=== PATIENT | female | born 1985 | race Caucasian/White ===

== ENCOUNTER → 2017-12-18 16:02 | Outpatient (REF) | payer BC, SELFPAY ==
--- NOTE | 2017-12-18 15:20 | PAPFT_PTH ---
PATIENT: Mag Lynn LOC: [facility] U#:[id number] AGE/SX: 39/F ROOM: RE12/18/[address]: Devi Harvey NP : 1985 BED: DIS: SPEC #: [id number] RECD: 12/18/17 17:49 STATUS: EVANS MORTENSEN #: [id number] ASHER: 12/18/17 15:[address]: Devi Harvey NP DEPT: [facility] Cytology RECD BY: Rosita Dominique ENTERED: 12/18/17 17:49 SP TYPE: PAPFT OTHR DR: Maxine Cabrera Tissues: 1 - CX/ENDOCX FOR PAP SMEARS Procedures: PAP THIN PREP/UVM Screening HPV DNA PROBE Comments: [id number]
== END ==
LOC: LBN 16:02
PROVIDERS: PCP Nurse Practitioner Family; Visit Provider Nurse Practitioner Women's Health
DX: Z12.4 Encounter for screening for malignant neoplasm of cervix (principal); Z11.51 Encounter for screening for human papillomavirus (HPV)
CPT/HCPCS: 88142; 87624

== ENCOUNTER 2018-02-21 13:18 | Outpatient (REF) | payer BC, SELFPAY ==
[2018-02-21 20:02] LABS: ESR 11 MM/HR (0-20)
[2018-02-24 11:19] LABS: HSV Type 1 Ab, IgG Positive; HSV Type 2 Ab, IgG Negative
[2018-02-24 13:55] LABS: ANA Interpretation Negative (NEGAT)
== END 2018-02-21 13:38 ==
LOC: NCHCN 13:18
PROVIDERS: PCP Nurse Practitioner Family; Visit Provider Nurse Practitioner Family
DX: M25.50 Pain in unspecified joint (principal); L30.9 Dermatitis, unspecified; K12.0 Recurrent oral aphthae; Z11.59 Encounter for screening for other viral diseases
CPT/HCPCS: 85652; 86038; 86695; 86696

== ENCOUNTER 2019-06-15 18:17 | Emergency (ER) | payer OTHER, SELFPAY ==
[2019-06-15 18:25] VITALS: BP 127/84; PULSE 84; RESP 18; TEMP 36.9; O2SAT 100
--- NOTE | 2019-06-15 18:35 | ED.GENADUL_ITS ---
Discharge Plan Disposition Patient Disposition: HOME Condition: Stable Discharge Details Chief Complaint: Allergic Clinical Impression: Rash, History of eczema Primary Care Provider: Maxine Cabrera ED Provider: Brenna Crocker Home Meds and New Rx's Prescriptions: New prednisone 20 mg tablet See Rx Instructions .ROUTE .COMPLEX Qty: 12 RF: 0 Continued diphenhydramine HCl [Benadryl] 25 mg Capsule 25 mg PO Q6H PRNRF: 0 Discharge Instructions Instructions: Acute Rash (ED) Additional Instructions: Take Benadryl as needed and directed for itching. Stop taking the Claritin as this is the one new medication he recently started. You can also try other nonsedating antihistamine such as Zyrtec or Renata as needed and directed for itching. Take the steroids until finished. You can also try [id number] topical steroid cream for your chronic eczema rash to your legs. Follow-up with your primary care doctor in 1 week. Return to the emergency department with any worsening or new concerning symptoms such as difficulty swallowing, difficulty breathing or any other concerns. Discharge Data Discharge Date/Time-TO BE ENTERED AT DEPARTURE: 06/15/19 19:50 Discharge Physician: Brenna Crocker Medical Decision Making 33-year-old female presents with pruritic rash to both arms since yesterday. Admits to a similar rash 1 month ago which she attributed to eating bad food while on vacation in [place]. She states the rash resolved after a few days at that time. She does state that she ate a pizza with gluten 2 days ago prior to onset of the rash so she is unsure if this is the cause. She reports she did test negative for celiac disease. She denies any other new exposures including new meds, lotions, detergents, soaps. She does state that sometime this afternoon she felt short of breath with a funny feeling in her throat for a short period. She states these symptoms are now resolved. She took 1 tab of Benadryl prior to arrival. She denies any vomiting or abdominal pain. There is a fine erythematous papular rash noted to the bilateral upper extremities. Some tiny papules appear excoriated consistent with scratching. They do not appear consistent with urticaria. This does not appear consistent with an obvious viral rash. Appears most likely consistent with a contact dermatitis. Discussed with patient that generally rashes which cause itching and inflammation, are best treated with possibly eliminating the source, in addition to Benadryl and steroids. As she had a brief episode of shortness of breath and sensation in throat, will treat with oral steroids. Patient demonstrates no signs of respiratory distress and has normal oxygen saturation. A dose of oral steroids and additional dose of Benadryl given. She had a negative test. She was given a prescription for prednisone to go. Advised to follow up with the primary care doctor for re-evaluation. Usual and customary return precautions given prior to discharge. Medical Records Medical records reviewed: Yes I reviewed the patient's medical records. HPI General Mode of arrival: ambulatory . Date/Time Provider Initiated Documentation: 06/15/19 18:32 . Limitations to Documentation: no limitations . Information obtained by: patient . History of Present Illness 33 year old F presents to the emergency department with the chief complaint of Itchy rash to both arms, described as moderate, and is localized to the abdomen, left, right and upper extremity. Patient reports no radiation. Patient started experiencing this day(s) (2) and it has been constant. No relieving factors improve symptom(s), No exacerbating factors reported . Patient notes shortness of breath and other (Throat felt funny). Patient did receive the following treatments prior to arrival, other (1 tab 25 mg Benadryl) Related Data Home Medications Medication Instructions Recorded Confirmed diphenhydramine HCl [Benadryl] 25 mg PO Q6H PRN 06/15/19 06/15/19 prednisone See Rx Instructions .ROUTE 06/15/19 .COMPLEX #12 tab Previous Rx's Medication Instructions Recorded prednisone See Rx Instructions .ROUTE 06/15/19 .COMPLEX #12 tab Allergies Allergy/AdvReac Type Severity Reaction Status Date / Time Sulfa (Sulfonamide Allergy Severe Anaphylaxsi Unverified 06/15/19 18:30 Antibiotics) s amoxicillin [Amoxicillin] Allergy Intermediate Hives Unverified 06/15/19 18:30 codeine Allergy Intermediate Hives Unverified 06/15/19 18:30 erythromycin base Allergy Intermediate Hives Unverified 06/15/19 18:30 [Erythromycin Base] Penicillins Allergy Intermediate Hives Unverified 06/15/19 18:30 clindamycin AdvReac chest Unverified 06/15/19 18:30 pain/tingling arms General Stated Complaint: Allergic NINA: 4 Review of Systems All systems reviewed & are unremarkable except as noted in HPI and below Constitutional Constitutional: Reports as per HPI, Denies chills and Denies fever(s) Eyes Eyes: Denies blurry vision ENT Ears, Nose, Mouth, and Throat: Denies dizziness, Denies sore throat and Denies throat swelling Cardiovascular Cardiovascular: Denies chest pain and Denies dyspnea Respiratory Respiratory: Denies cough and Denies dyspnea Gastrointestinal Gastrointestinal: Denies abdominal pain, Denies diarrhea and Denies vomiting Genitourinary Genitourinary: Denies hematuria and Denies dysuria Musculoskeletal Musculoskeletal: Denies back pain and Denies numbness Integumentary/Breasts Skin/Breast: Denies lesions and Reports rash Neurologic Neurologic: Denies dizziness, Denies focal weakness and Denies numbness Allergic/Immunologic Allergic/Immunologic: Denies throat swelling [facility] Medical History No significant past medical history (Acute) Surgical History Knee surgery 1999 Tonsillectomy (~2004) W/O C/O Social History Smoking/Tobacco Use Status: Former Tobacco Use Drug use: Never Do you feel safe in your relationship?: Yes Exam Const General: cooperative, healthy appearing and no acute distress HENMT Head: normal to inspection Ears: hearing grossly normal bilaterally and external ears normal Face and sinus: normal facial exam Mouth: oral mucosae normal, lip normal, tongue normal, oropharynx normal, moist mucous membranes, no drooling and no trismus Throat: posterior oropharynx normal, uvula midline and no peritonsillar masses Eyes General: appearance normal, both eyes and all related structures Pupils: PERRL EOM: EOM intact bilaterally Neck Neck: normal visual inspection and No submandibular swelling Lymphatic: no lymphadenopathy noted Chest Chest: normal inspection of the chest and no tenderness Resp Effort & Inspection: normal respiratory effort and able to speak in complete sentences Auscultation: clear to auscultation bilaterally Cardio Rate: regular rate Rhythm: regular rhythm GI Inspection: normal to inspection Palpation: soft, not firm, not rigid and nontender Auscultation: normal bowel sounds Skin Other: Fine erythematous papules noted scattered and also in clusters on bilateral dorsal upper extremities. Linear excoriations consistent with scratching. No obvious rash noted to abdomen. Neuro General: alert, awake and oriented x3 Cognition: normal cognition Speech: speech normal Motor: muscle tone normal throughout Sensory Exam: no sensory deficits noted Extrem General: normal to inspection, full ROM, normal capillary refill, no calf tenderness bilaterally and no edema Psych Appearance: grossly normal Mental Status: mental status grossly normal Speech and Movement: speech and movement normal Affect: normal affect Course Vital Signs Vital signs: Vital Signs Temperature 98.4 F 06/15/19 18:25 Pulse 84 06/15/19 18:25 Respiratory Rate 18 06/15/19 18:25 Blood Pressure 127/84 06/15/19 18:25 Pulse Oximetry 100 06/15/19 18:25 Temperature 98.4 F 06/15/19 18:25 Temperature Source Skin 06/15/19 18:25 Pulse 84 06/15/19 18:25 Respiratory Rate 18 06/15/19 18:25 Blood Pressure 127/84 06/15/19 18:25 Blood Pressure Position Sitting 06/15/19 18:25 Pulse Oximetry 100 06/15/19 18:25 Oxygen Delivery Method Room Air 06/15/19 18:25 Oxygen Flow Rate 0 06/15/19 18:25 Pain Level 0 06/15/19 18:25
[2019-06-15 18:46] VITALS: BP 118/85; PULSE 88; O2SAT 99
[2019-06-15 18:47] VITALS: O2SAT 99
[2019-06-15] MEDS: diphenhydrAMINE 25 MG CAP PO (19:28)
[2019-06-15] MEDS: predniSONE 20 MG TAB 60 MG PO (19:36)
== END 2019-06-15 19:50 | disposition home or self-care (01) ==
LOC: ER 19:57
PROVIDERS: Emergency Provider Physician Assistant; PCP Nurse Practitioner Family
DX: R21 Rash and other nonspecific skin eruption (principal); L25.9 Unspecified contact dermatitis, unspecified cause; R06.02 Shortness of breath
CPT/HCPCS: 81025; 99283; J7512

== ENCOUNTER 2019-12-24 21:40 | Outpatient (REF) | payer OTHER, SELFPAY ==
[2019-12-28 13:29] LABS: SARS-CoV-2 RNA Undetected (Undetected); SARS-CoV-2 Specimen Source Nasopharynx
== END 2019-12-24 22:00 ==
LOC: NCHCN 21:40
PROVIDERS: PCP Nurse Practitioner Family; Visit Provider Nurse Practitioner Family
DX: R05 Cough (principal)
CPT/HCPCS: U0003

== ENCOUNTER 2020-01-28 15:44 | Outpatient (REF) | payer OTHER, SELFPAY ==
[2020-01-30 19:19] LABS: Patient Race White; SARS-CoV-2 RNA Undetected (Undetected); SARS-CoV-2 Specimen Source Nasopharynx
== END 2020-01-28 16:04 ==
LOC: NCHCN 15:44
PROVIDERS: PCP Nurse Practitioner Family; Visit Provider Nurse Practitioner Family
DX: R05 Cough (principal); R06.02 Shortness of breath; Z20.828 Contact with and (suspected) exposure to other viral communicable diseases
CPT/HCPCS: U0003

== ENCOUNTER 2020-03-25 19:52 | Emergency (ER) | payer OTHER, SELFPAY ==
[2020-03-25] VITALS (7 sets, daily range): BP systolic 103–128; BP diastolic 61–88; PULSE 65–88; RESP 13–20; TEMP 36.8; O2SAT 95–100
--- NOTE | 2020-03-25 19:45 | RT.EKG_ITS ---
APPROVED REPORT Exam: Resting ECG Patient Location: E HR:77 bpm ECG Measurements Heart Rate 77 AXIS KS 148 P 52 QRSd 95 QRS 66 QT 404 T 26 QTc 457 Conclusion Sinus rhythm...normal P axis, V-rate 60- 99 Normal Electrocardiogram
[2020-03-25 20:35] LABS: Abs Immature Grans 0.03 10^3/uL (0.0-0.06); Absolute Basophil Count 0.05 10^3/uL (0.0-0.2); Absolute Eosinophil Count 0.14 10^3/uL (0.0-0.7); Absolute Lymphocyte Count 1.72 10^3/uL (1.2-3.4); Absolute Monocyte Count 0.61 10^3/uL (0.1-0.8); Absolute Neutrophil Count 5.23 10^3/uL (1.2-6.7); Basophils % 0.6; Eosinophils % 1.8; HGB 15.1 g/dL (11.2-15.7); Immature Grans % 0.4; Lymphocytes % 22.1; MCH 32.2 pg (27.0-33.0); MCHC 35.1 % (32.0-36.0); MCV 91.7 fL (80-95); Monocytes % 7.8; Neutrophils % 67.3; Nucleated RBC 0 %; Platelet Count 305 10^3/uL (130-400); RBC 4.69 10^6/uL (3.93-5.22); RDW 11.5 % (11.7-14.6); RDW-SD 38.9 fL; WBC 7.78 10^3/uL (4.4-10.8)
--- NOTE | 2020-03-25 20:35 | ED.GENADUL_ITS ---
Discharge Plan Disposition Patient Disposition: HOME Condition: Improving Discharge Details Clinical Impression: Chest pain due to GERD Primary Care Provider: Maxine Cabrera ED Provider: Ashley Hahn Home Meds and New Rx's Prescriptions: New pantoprazole [address] for susp in packet 40 mg PO DAILY Qty: 30 RF: 0 No Action sertraline 50 mg tablet 50 mg PO DAILY RF: 0 Discharge Instructions Instructions: GERD (Gastroesophageal Reflux Disease) (ED) Additional Instructions: take protonix daily for 3 weeks. avoid spicy and acidic foods avoid eating within 3 hours of bedtime. Referrals: Maxine Cabrera [Primary Care Provider] - Medical Decision Making presents with symptoms most consistent with GERD. EKG with no acute st segment changes routine chest pain labs reviewed and unremarkable. cxr with no findings pain improved after gi cocktail and IV protonix. Medical Records Medical records reviewed: Yes I reviewed the patient's medical records. Medical records narrative: chest xray no acute findings Lab Data Lab results reviewed: Yes I reviewed the patient's lab results. Lab results narrative: Laboratory Tests Range/Units 03/25/20 03/25/20 03/25/20 20:10 20:10 20:10 WBC (4.4-10.8) 10^3/uL 7.78 RBC (3.93-5.22) 10^6/uL 4.69 Hgb (11.2-15.7) g/dL 15.1 Hct (36.0-46.0) % 43.0 MCV (80-95) fL 91.7 MCH (27.0-33.0) pg 32.2 MCHC (32.0-36.0) % 35.1 RDW (11.7-14.6) % 11.5 L Plt Count (130-400) 10^3/uL 305 MPV (8.0-11.0) fL 9.0 Immature Gran % 0.4 Neutrophils % 67.3 Lymphocytes % 22.1 Monocytes % 7.8 Eosinophils % 1.8 Basophils % 0.6 Nucleated RBC % % 0 Absolute Neutrophils (1.2-6.7) 10^3/uL 5.23 Absolute Lymphocytes (1.2-3.4) 10^3/uL 1.72 Absolute Monocytes (0.1-0.8) 10^3/uL 0.61 Absolute Eosinophils (0.0-0.7) 10^3/uL 0.14 Absolute Basophils (0.0-0.2) 10^3/uL 0.05 D-Dimer (<500) ng/mlFEU 138 Sodium (136-145) mmol/L 139 Potassium (3.5-5.1) mmol/L 3.6 Chloride (98-107) mmol/L 102 Carbon Dioxide (21.0-32.0) mmol/L 31.6 Anion Gap (3-11) mmol/L 5.4 BUN (7-18) mg/dL 15 Creatinine (0.55-1.02) mg/dL 0.83 Estimated GFR/1.73 m2 (mL/min/1.73m2) >= 60.00 Glucose (74-106) mg/dL 89 Calcium (8.5-10.1) mg/dL 9.9 Magnesium (1.8-2.4) mg/dL 2.1 Total Bilirubin (0.2-1.0) mg/dL 0.3 AST (15-37) U/L 17 ALT (14-59) U/L 23 Alkaline Phosphatase (46-116) U/L 81 Troponin I (<0.06) ng/mL < 0.05 Total Protein (6.4-8.2) g/dL 7.8 Albumin (3.4-5.0) g/dL 4.3 HPI General Mode of arrival: ambulatory . Date/Time Provider Initiated Documentation: 03/25/20 20:04 . Limitations to Documentation: no limitations . HPI Narrative: presents for evaluation of substernal chest pain that has been present for 2 days. using tums with no relief. has similar history with heart burn when she was but otherwise no other history no fevers or cough, no Related Data Home Medications Medication Instructions Recorded Confirmed pantoprazole 40 mg PO DAILY #30 ea 03/25/20 sertraline 50 mg PO DAILY 03/25/20 03/25/20 Previous Rx's Medication Instructions Recorded pantoprazole 40 mg PO DAILY #30 ea 03/25/20 Allergies Allergy/AdvReac Type Severity Reaction Status Date / Time Sulfa (Sulfonamide Allergy Severe Anaphylaxsi Unverified 03/25/20 20:03 Antibiotics) s amoxicillin [Amoxicillin] Allergy Intermediate Hives Unverified 03/25/20 20:03 codeine Allergy Intermediate Hives Unverified 03/25/20 20:03 erythromycin base Allergy Intermediate Hives Unverified 03/25/20 20:03 [Erythromycin Base] Penicillins Allergy Intermediate Hives Unverified 03/25/20 20:03 clindamycin AdvReac chest Unverified 03/25/20 20:03 pain/tingling arms General Stated Complaint: Chest Pain NINA: 2 Review of Systems All systems reviewed & are unremarkable except as noted in HPI and below Constitutional Constitutional: Denies fever(s) Cardiovascular Cardiovascular: Reports chest pain, Denies edema, Denies lightheadedness and Denies dyspnea Respiratory Respiratory: Denies cough and Denies dyspnea Gastrointestinal Gastrointestinal: Denies abdominal pain Musculoskeletal Musculoskeletal: Denies back pain Integumentary/Breasts Skin/Breast: Denies rash [facility] Medical History (Updated 03/25/20 @ 21:39 by Ashley Hahn NP) No significant past medical history Surgical History Knee surgery 1998 Tonsillectomy (~2004) W/O C/O Social History Smoking/Tobacco Use Status: Former Tobacco Use Smoking risk assessment performed?: Yes Alcohol Intake: current Alcohol Intake frequency: a few times a month Drug use: Never Substance use type: does not use Do you feel safe at home: Yes Do you feel safe in your relationship?: Yes Exam Const General: cooperative, healthy appearing and comfortable Nutritional Appearance: average body habitus Orientation: alert, awake and oriented x3 HENMT Head: normal to inspection, normocephalic and atraumatic Mouth: oral mucosae normal Resp Effort & Inspection: normal respiratory effort Auscultation: clear to auscultation bilaterally Cardio Rate: regular rate Rhythm: regular rhythm (ekg shows normal sinus rhythm, no acute st segment changes) Heart Sounds: no murmurs GI Inspection: normal to inspection Palpation: soft Auscultation: normal bowel sounds Skin General skin exam: no rashes or lesions noted Neuro General: patient alert, patient awake and patient oriented x3 Course Vital Signs Vital signs: Vital Signs Temperature 36.8 C 03/25/20 20:00 Pulse 83 03/25/20 20:00 Respiratory Rate 20 03/25/20 20:00 Blood Pressure 121/82 03/25/20 20:00 Pulse Oximetry 99 03/25/20 20:00 Temperature 36.8 C 03/25/20 20:00 Temperature Source Skin 03/25/20 20:00 Pulse 83 03/25/20 20:00 Respiratory Rate 16 03/25/20 20:10 Respiratory Effort Non-Labored 03/25/20 20:10 Respiratory Depth Normal 03/25/20 20:10 Respiratory Pattern Normal 03/25/20 20:10 Blood Pressure 121/82 03/25/20 20:00 Blood Pressure Position Sitting 03/25/20 20:00 Pulse Oximetry 99 03/25/20 20:00 Oxygen Delivery Method Room Air 03/25/20 20:00 Oxygen Flow Rate 0 03/25/20 20:00 Pain Level 4 03/25/20 20:00
[2020-03-25] MEDS: Pantoprazole 40 MG VIAL IVP (20:41)
[2020-03-25 20:53] LABS: ALT 23 U/L (14-59); AST 17 U/L (15-37); Albumin 4.3 g/dL (3.4-5.0); Alkaline Phosphatase 81 U/L (46-116); Anion Gap 5.4 mmol/L (3-11); BUN 15 mg/dL (7-18); Bilirubin, Total 0.3 mg/dL (0.2-1.0); CO2 31.6 mmol/L (21.0-32.0); CREATININE 0.83 mg/dL (0.55-1.02); Calcium 9.9 mg/dL (8.5-10.1); Chloride 102 mmol/L (98-107); Glucose 89 mg/dL (74-106); Magnesium 2.1 mg/dL (1.8-2.4); Potassium 3.6 mmol/L (3.5-5.1); Sodium 139 mmol/L (136-145); Total Protein 7.8 g/dL (6.4-8.2)
[2020-03-25 20:54] LABS: Troponin I < 0.05 ng/mL (<0.06)
[2020-03-25 21:12] LABS: D-Dimer 138 ng/mlFEU (<500)
--- NOTE | 2020-03-25 21:13 | DI.RAD_ITS ---
EXAM: XR CHEST 2V PA LATERAL CLINICAL HISTORY: chest pain TECHNIQUE: 2D digital imaging was performed. COMPARISON: CR CHEST 2 VIEWS PA,LAT from 07/26/2016 FINDINGS: The heart is not enlarged. The lungs are clear and well expanded. No pleural effusion seen. Mediastin al contours appear intact. IMPRESSION: Normal chest. RADIATION DOSE DELIVERED: Total DLP Total DLP
--- NOTE | 2020-03-25 21:24 | DI.VRAD_ITS ---
PROCEDURE INFORMATION: Exam: XR Chest, 2 Views Exam date and time: 03/25/2020 21:13 Age: 34 years old Clinical indication: Chest pain; Type not specified TECHNIQUE: Imaging protocol: XR of the chest Views: 2 views. COMPARISON: CR CHEST 2 VIEWS PA,LAT 07/26/2016 16:55 FINDINGS: Lungs: No airspace consolidation. No significant interstitial disease for the degree of inflation. Pleural space: No pleural effusion. No pneumothorax. Heart/Mediastinum: No cardiomegaly. Bones/joints: No acute fracture. IMPRESSION: Normal. Dictated and Authenticated by: Shanthi Gale MD. Ordering:RADHA Ramirez MD
== END 2020-03-25 22:50 | disposition home or self-care (01) ==
PROVIDERS: Emergency Provider Nurse Practitioner Acute Care; PCP Nurse Practitioner Family
DX: R07.89 Other chest pain (principal); K21.9 Gastro-esophageal reflux disease without esophagitis
CPT/HCPCS: 80053; 93005; 96374; 99284; 71046; 83735; 84484; 85025; 85379; 93010

== ENCOUNTER 2020-04-05 22:33 | Outpatient (REF) | payer OTHER, SELFPAY ==
[2020-04-08 11:06] LABS: COVID-19 RT-PCR Result Positive (Negative)
== END 2020-04-05 22:53 ==
LOC: NCHCN 22:33
PROVIDERS: PCP Nurse Practitioner Family; Visit Provider Nurse Practitioner Family
DX: Z20.828 Contact with and (suspected) exposure to other viral communicable diseases (principal)
CPT/HCPCS: U0003

== ENCOUNTER 2021-04-04 11:14 | Outpatient (REF) | payer SELFPAY ==
--- NOTE | 2021-04-04 09:30 | PAPFT_PTH ---
PATIENT: Mag Lynn LOC: [facility] U#:[id number] AGE/SX: 35/F ROOM: RE04/04/[address]: CHELSEA Paul : 1985 BED: DIS: 04/04/2021 SPEC #: [id number] RECD: 04/04/21 12:51 STATUS: EVANS REBrandan #: [id number] ASHER: 04/04/21 09:[address]: Deyanira Taylor DEPT: [facility] Cytology RECD BY: Rosita Dominique ENTERED: 04/04/21 12:51 SP TYPE: PAPFT OTHR DR: Maxine Cabrera Tissues: 1 - CX/ENDOCX FOR PAP SMEARS Procedures: PAP THIN PREP/UVM Screening HPV DNA PROBE Comments: [id number]
== END 2021-04-04 11:15 | disposition home or self-care (01) ==
LOC: LBN 11:14
PROVIDERS: PCP Nurse Practitioner Family; Visit Provider Nurse Practitioner Family
DX: Z12.4 Encounter for screening for malignant neoplasm of cervix (principal); Z11.51 Encounter for screening for human papillomavirus (HPV); R87.810 Cervical high risk human papillomavirus (HPV) DNA test positive
CPT/HCPCS: 88142; 87624

== ENCOUNTER 2022-06-03 15:22 | Emergency (ER) | payer BC, SELFPAY ==
[2022-06-03] VITALS (46 sets, daily range): BP systolic 103–139; BP diastolic 66–83; PULSE 64–108; RESP 10–24; TEMP 37.1–37.2; O2SAT 97–99
--- NOTE | 2022-06-03 15:30 | RT.EKG_ITS ---
APPROVED REPORT Exam: Resting ECG Reason for Exam: chest pain Patient Location: E HR:105 bpm ECG Measurements Heart Rate 105 AXIS NV 170 P 0 QRSd 96 QRS 9 QT 352 T 50 QTc 465 Conclusion Sinus tachycardia...rate> 99 Inferior infarct, old...Q >35mS, II III aVF
--- NOTE | 2022-06-03 15:30 | DI.RAD_ITS ---
Exam(s) XR CHEST 2V PA LATERAL EXAM: XR CHEST 2V PA LATERAL CLINICAL HISTORY: chest pain TECHNIQUE: 2D digital imaging was performed of the chest. Two images were obtained. PA and lateral views were obtained. COMPARISON: CR,XR XR CHEST 2V PA LATERAL from 03/25/2020 FINDINGS: MEDIASTINUM: Normal. HEART: Normal. PULMONARY VASCULATURE: Normal. LUNGS: Clear. PLEURAL SPACE: No pleural effusion or pneumothorax. BONE:Within normal limits for the patient's age. OTHER FINDINGS:Normal. IMPRESSION: No acute pulmonary findings. DATA REPOSITORY: RADIATION DOSE DELIVERED:
--- NOTE | 2022-06-03 15:33 | W.ED.GENAD ---
Discharge Plan Disposition Patient Disposition: Home Condition: Stable Discharge Details Chief Complaint: Chest Pain Clinical Impression: Palpitations, Chest pressure Primary Care Provider: Maxine Cabrera ED Provider: Tony Seay Home Meds and New Rx's Prescriptions: No Action No Known Home Meds Discharge Instructions Instructions: Heart Palpitations (ED), Chest Pain (ED) Additional Instructions: Work-up in the ER does not reveal any obvious emergent process and you are currently feeling asymptomatic. Please watch for new or worsening symptoms and return to the ER for any concerns. Please follow the instructions given to you by your primary care provider to get the Holter monitor. Lastly, please contact your primary care provider tomorrow to discuss your ER visit, ongoing symptoms, need for outpatient reevaluation. Medical Decision Making This is a 36-year-old female with no significant past medical history, non-smoker, currently takes no medications, presents for palpitations that began on Saturday, substernal chest pain began yesterday, today had substernal chest pain, shortness of breath, felt warm and anxious. Reports upon presentation to the ER she is does not feel right but denies any chest pain or shortness of breath. She saw her PCP on Saturday evening, will have a Holter monitor set up but did not have any EKG, blood work or x-ray. Clinically she appears well, nontoxic. Pulse in triage was 102 but during my evaluation it was in the 80s. Plan to initiate a cardiac work-up including D-dimer, thyroid studies, and provide full dose aspirin. Laboratory values are unremarkable for any obvious emergent process. Potassium minimally low at 3.3. Will replenish with 40 p.o. Troponin less than 50, TSH 2.0. Flu, COVID, RSV negative. D-dimer 159, will not pursue CTA of the chest. Normal chest x-ray. Plan to obtain delta troponin. Patient denies any palpitations while under my care. L troponin remains less than 50. Patient remains asymptomatic. Had a long discussion with the patient and her mother. Patient states that she is under increased stress, has a history of anxiety, and used to be on sertraline, wonders if what she experienced was a panic attack. Certainly a panic attack could explain her symptoms. We discussed contacting her primary care provider and getting referral to a counselor as this may be helpful to further evaluate potential triggers and coping mechanisms as she would rather not go on any additional medications. Standard discharge and return precautions were provided. Patient understands, is agreeable to this plan, and has no additional questions or concerns upon discharge. This documentation was generated using BDAation system, please disregard any oddities of phrase or misspellings. Medical Records Medical records reviewed: Yes I reviewed the patient's medical records. Imaging Data Radiologic Study: Attestation: I personally reviewed and interpreted this imaging study as follows: Imaging: X-Ray Radiologist's impression: PROCEDURE INFORMATION: Exam: XR Chest Exam date and time: 06/03/2022 4:03 PM Age: 36 years old Clinical indication: Other: Chest pain TECHNIQUE: Imaging protocol: Radiologic exam of the chest. Views: 2 views. COMPARISON: CR XR CHEST 2V PA LATERAL 03/25/2020 9:09 PM FINDINGS: Lungs: Unremarkable. No consolidation. Pleural spaces: Unremarkable. No pleural effusion. No pneumothorax. Heart/Mediastinum: Unremarkable. No cardiomegaly. Bones/joints: Unremarkable. IMPRESSION: No acute findings. Lab Data Lab results reviewed: Yes I reviewed the patient's lab results. Labs: Laboratory Tests Range/Units 06/03/22 06/03/22 06/03/22 15:31 15:39 15:39 WBC (4.4-10.8) 10^3/uL RBC (3.93-5.22) 10^6/uL Hgb (11.2-15.7) g/dL Hct (36.0-46.0) % MCV (80-95) fL MCH (27.0-33.0) pg MCHC (32.0-36.0) % RDW (11.7-14.6) % Plt Count (130-400) 10^3/uL MPV (8.0-11.0) fL Immature Gran % Neutrophils % Lymphocytes % Monocytes % Eosinophils % Basophils % Nucleated RBC % (0.0-0.3) % Absolute Neutrophils (1.2-6.7) 10^3/uL Absolute Lymphocytes (1.2-3.4) 10^3/uL Absolute Monocytes (0.1-0.8) 10^3/uL Absolute Eosinophils (0.0-0.7) 10^3/uL Absolute Basophils (0.0-0.2) 10^3/uL PT Cancelled INR Cancelled APTT Cancelled D-Dimer (<500) ng/mlFEU 159 Sodium (136-145) mmol/L Potassium (3.5-5.1) mmol/L Chloride (98-107) mmol/L Carbon Dioxide (21.0-32.0) mmol/L Anion Gap (3-11) mmol/L BUN (7-18) mg/dL Creatinine (0.55-1.02) mg/dL Est GFR (CKD-EPI 2020) (mL/min/1.73m2) Glucose (74-106) mg/dL Calcium (8.5-10.1) mg/dL Magnesium (1.8-2.4) mg/dL 1.8 Total Bilirubin (0.2-1.0) mg/dL AST (15-37) U/L ALT (14-59) U/L Alkaline Phosphatase (46-116) U/L Troponin I (<or=60) ng/L < 50 Total Protein (6.4-8.2) g/dL Albumin (3.4-5.0) g/dL TSH (0.36-3.74) uIU/mL 2.00 Urine Color (Yellow) Urine Clarity (Clear) Urine pH (5-8) Ur Specific [place] (1.005-1.025) Urine Protein (Negative) mg/dL Urine Ketones (Negative) mg/dL Urine Blood (Negative) Urine Nitrite (Negative) Urine Bilirubin (Negative) Urine Urobilinogen (Up TO 0.2) EU/dL Ur Leukocyte Esterase (Negative) Urine Glucose (Negative) mg/dL Urine Opiates Screen (Negative) Urine Methadone Screen (Negative) Ur Barbiturates Screen (Negative) Ur Tricyclics Screen (Negative) Ur Amphetamines Screen (Negative) U Benzodiazepines Scrn (Negative) Urine Cocaine Screen (Negative) Ur THC Screen (Negative) COVID-19 Source SARS-CoV-2 (PCR) (Negative) Influenza Type A (PCR) (Negative) Influenza Type B (PCR) (Negative) RSV (PCR) (Negative) Range/Units 06/03/22 06/03/22 06/03/22 15:39 15:39 15:45 WBC (4.4-10.8) 10^3/uL 7.55 RBC (3.93-5.22) 10^6/uL 4.71 Hgb (11.2-15.7) g/dL 14.9 Hct (36.0-46.0) % 43.1 MCV (80-95) fL 92 MCH (27.0-33.0) pg 31.6 MCHC (32.0-36.0) % 34.6 RDW (11.7-14.6) % 11.6 L Plt Count (130-400) 10^3/uL 317 MPV (8.0-11.0) fL 9.1 Immature Gran % 0.3 Neutrophils % 67.1 Lymphocytes % 25.0 Monocytes % 6.0 Eosinophils % 0.7 Basophils % 0.9 Nucleated RBC % (0.0-0.3) % 0.0 Absolute Neutrophils (1.2-6.7) 10^3/uL 5.07 Absolute Lymphocytes (1.2-3.4) 10^3/uL 1.89 Absolute Monocytes (0.1-0.8) 10^3/uL 0.45 Absolute Eosinophils (0.0-0.7) 10^3/uL 0.05 Absolute Basophils (0.0-0.2) 10^3/uL 0.07 PT INR APTT D-Dimer (<500) ng/mlFEU Sodium (136-145) mmol/L 141 Potassium (3.5-5.1) mmol/L 3.3 L Chloride (98-107) mmol/L 104 Carbon Dioxide (21.0-32.0) mmol/L 24.7 Anion Gap (3-11) mmol/L 12.3 H BUN (7-18) mg/dL 12 Creatinine (0.55-1.02) mg/dL 0.9 Est GFR (CKD-EPI 2020) (mL/min/1.73m2) 85.50 Glucose (74-106) mg/dL 111 H Calcium (8.5-10.1) mg/dL 9.3 Magnesium (1.8-2.4) mg/dL Total Bilirubin (0.2-1.0) mg/dL 0.4 AST (15-37) U/L 12 L ALT (14-59) U/L 13 L Alkaline Phosphatase (46-116) U/L 75 Troponin I (<or=60) ng/L Total Protein (6.4-8.2) g/dL 8.0 Albumin (3.4-5.0) g/dL 4.6 TSH (0.36-3.74) uIU/mL Urine Color (Yellow) Urine Clarity (Clear) Urine pH (5-8) Ur Specific [place] (1.005-1.025) Urine Protein (Negative) mg/dL Urine Ketones (Negative) mg/dL Urine Blood (Negative) Urine Nitrite (Negative) Urine Bilirubin (Negative) Urine Urobilinogen (Up TO 0.2) EU/dL Ur Leukocyte Esterase (Negative) Urine Glucose (Negative) mg/dL Urine Opiates Screen (Negative) Urine Methadone Screen (Negative) Ur Barbiturates Screen (Negative) Ur Tricyclics Screen (Negative) Ur Amphetamines Screen (Negative) U Benzodiazepines Scrn (Negative) Urine Cocaine Screen (Negative) Ur THC Screen (Negative) COVID-19 Source Nasopharynx SARS-CoV-2 (PCR) (Negative) Negative Influenza Type A (PCR) (Negative) Negative Influenza Type B (PCR) (Negative) Negative RSV (PCR) (Negative) Negative Range/Units 06/03/22 06/03/22 06/03/22 15:45 15:45 18:39 WBC (4.4-10.8) 10^3/uL RBC (3.93-5.22) 10^6/uL Hgb (11.2-15.7) g/dL Hct (36.0-46.0) % MCV (80-95) fL MCH (27.0-33.0) pg MCHC (32.0-36.0) % RDW (11.7-14.6) % Plt Count (130-400) 10^3/uL MPV (8.0-11.0) fL Immature Gran % Neutrophils % Lymphocytes % Monocytes % Eosinophils % Basophils % Nucleated RBC % (0.0-0.3) % Absolute Neutrophils (1.2-6.7) 10^3/uL Absolute Lymphocytes (1.2-3.4) 10^3/uL Absolute Monocytes (0.1-0.8) 10^3/uL Absolute Eosinophils (0.0-0.7) 10^3/uL Absolute Basophils (0.0-0.2) 10^3/uL PT INR APTT D-Dimer (<500) ng/mlFEU Sodium (136-145) mmol/L Potassium (3.5-5.1) mmol/L Chloride (98-107) mmol/L Carbon Dioxide (21.0-32.0) mmol/L Anion Gap (3-11) mmol/L BUN (7-18) mg/dL Creatinine (0.55-1.02) mg/dL Est GFR (CKD-EPI 2020) (mL/min/1.73m2) Glucose (74-106) mg/dL Calcium (8.5-10.1) mg/dL Magnesium (1.8-2.4) mg/dL Total Bilirubin (0.2-1.0) mg/dL AST (15-37) U/L ALT (14-59) U/L Alkaline Phosphatase (46-116) U/L Troponin I (<or=60) ng/L < 50 Total Protein (6.4-8.2) g/dL Albumin (3.4-5.0) g/dL TSH (0.36-3.74) uIU/mL Urine Color (Yellow) Yellow Urine Clarity (Clear) Clear Urine pH (5-8) 6.0 Ur Specific [place] (1.005-1.025) 1.010 Urine Protein (Negative) mg/dL Negative Urine Ketones (Negative) mg/dL Negative Urine Blood (Negative) Negative Urine Nitrite (Negative) Negative Urine Bilirubin (Negative) Negative Urine Urobilinogen (Up TO 0.2) EU/dL 0.2 Ur Leukocyte Esterase (Negative) Negative Urine Glucose (Negative) mg/dL Negative Urine Opiates Screen (Negative) Negative Urine Methadone Screen (Negative) Negative Ur Barbiturates Screen (Negative) Negative Ur Tricyclics Screen (Negative) Negative Ur Amphetamines Screen (Negative) Negative U Benzodiazepines Scrn (Negative) Negative Urine Cocaine Screen (Negative) Negative Ur THC Screen (Negative) Negative COVID-19 Source SARS-CoV-2 (PCR) (Negative) Influenza Type A (PCR) (Negative) Influenza Type B (PCR) (Negative) RSV (PCR) (Negative) ECG Data Attestation: I personally reviewed and interpreted this ECG (s) as follows: Interpretation: Sinus tachycardia, ventricular rate of 105, no STEMI. HPI General Mode of arrival: ambulatory. Date/Time Provider Initiated Documentation: 06/03/22 15:31. Limitations to Documentation: no limitations. Information obtained by: patient. HPI Narrative: This is a 36-year-old female who denies significant past medical history, on no medications, non-smoker, reports palpitations that lasted for 1 hour at rest on Saturday, saw her PCP and an outpatient Holter monitor was ordered but not set up yet, yesterday developed mild substernal chest pressure, today at her son's basketball game felt as though she could not take a deep breath, had chest pain and felt warm and anxious. Patient states at this time she has no chest pain or pressure but simply does not feel well. She tells me she had COVID in the middle of April and her symptoms were more of a mild URI. She denies fever, neck pain, cough, abdominal pain, nausea, vomiting, change in bowel or bladder function, pain or swelling her lower extremities. Related Data Home Medications Medication Instructions Recorded Confirmed Unknown [No Known Home Meds] 06/03/22 06/03/22 Allergies Allergy/AdvReac Type Severity Reaction Status Date / Time Sulfa (Sulfonamide Allergy Severe Anaphylaxsi Verified 06/03/22 15:31 Antibiotics) s amoxicillin [Amoxicillin] Allergy Intermediate Hives Verified 06/03/22 15:31 codeine Allergy Intermediate Hives Verified 06/03/22 15:31 erythromycin base Allergy Intermediate Hives Verified 06/03/22 15:31 [Erythromycin Base] Penicillins Allergy Intermediate Hives Verified 06/03/22 15:31 clindamycin AdvReac chest Verified 06/03/22 15:31 pain/tingling arms General Stated Complaint: Chest Pain NINA: 2 Review of Systems Constitutional Constitutional: Denies fatigue, Denies fever(s), Denies headache(s) and Denies weakness Eyes Eyes: Denies change in vision ENT Ears, Nose, Mouth, and Throat: Denies headache(s) and Denies neck pain Cardiovascular Cardiovascular: Reports chest pain and Reports dyspnea Respiratory Respiratory: Denies cough and Reports dyspnea Gastrointestinal Gastrointestinal: Denies abdominal pain, Denies nausea and Denies vomiting Genitourinary Genitourinary: Denies dysuria Musculoskeletal Musculoskeletal: Denies back pain, Denies neck pain, Denies numbness and Denies tingling Integumentary/Breasts Skin/Breast: Denies rash Neurologic Neurologic: Denies headache(s), Denies numbness, Denies tingling and Denies weakness Endocrine Endocrine: Denies fatigue Hematologic/Lymphatic Hematologic/Lymphatic: Denies easy bleeding and Denies easy bruising PFSH All Active Problems (Updated 06/03/22 @ 19:32 by KAYE Dias) Palpitations (Acute) Chest pressure (Acute) History of eczema (Acute) Medical History No significant past medical history Surgical History Knee surgery 1999 Tonsillectomy (~2004) W/O C/O Family History Paternal Uncle No problems noted. Self Adopted Social History Smoking/Tobacco Use Status: Former Tobacco Use Smoking risk assessment performed?: Yes Alcohol Intake: current Alcohol Intake frequency: a few times a month Drug use: Never Substance use type: does not use Do you feel safe at home: Yes Do you feel safe in your relationship?: Yes Exam Const General: cooperative, healthy appearing, comfortable and no acute distress Orientation: alert and awake [facility] Head: normal to inspection, normocephalic and atraumatic Face and sinus: normal facial exam Mouth: moist mucous membranes Eyes General: appearance normal, both eyes and all related structures Conjunctivae: conjunctivae normal Neck Neck: normal visual inspection, full ROM, no meningeal signs, trachea midline and supple Resp Effort & Inspection: normal respiratory effort and able to speak in complete sentences Auscultation: clear to auscultation bilaterally Cardio Rate: regular rate Rhythm: regular rhythm GI Palpation: soft, not firm, no guarding, no pulsatile masses and nontender Back/Spine/Pelvis Back: no CVA tenderness and No back tenderness Skin General skin exam: no rashes or lesions noted Neuro General: patient alert, patient awake, moves all extremities and no focal motor deficits Cognition: normal cognition Speech: speech normal Gait: normal gait Motor: muscle tone normal throughout Sensory Exam: no sensory deficits noted Extrem General: normal to inspection, full ROM, capillary refill normal, no pedal edema and no calf tenderness Psych Appearance: grossly normal Mental Status: mental status grossly normal Course Vital Signs Vital signs: Vital Signs Temperature 37.1 C 06/03/22 15:24 Pulse 102 H 06/03/22 15:24 Respiratory Rate 22 06/03/22 15:24 Blood Pressure 139/81 06/03/22 15:24 Pulse Oximetry 99 06/03/22 15:24 Temperature 37.1 C 06/03/22 15:24 Temperature Source Temporal Artery Scan 06/03/22 15:24 Pulse 102 H 06/03/22 15:24 Respiratory Rate 22 06/03/22 15:29 Respiratory Effort Short of Breath 06/03/22 15:29 Respiratory Depth Normal 06/03/22 15:29 Respiratory Pattern Normal 06/03/22 15:29 Blood Pressure 139/81 06/03/22 15:24 Blood Pressure Position Sitting 06/03/22 15:24 Pulse Oximetry 99 06/03/22 15:24 Oxygen Delivery Method Room Air 06/03/22 15:24 Oxygen Flow Rate 0 06/03/22 15:24 Pain Level 5 06/03/22 15:29 PAWSS Have you Been Recently Intoxicated or Drunk Within the Last 30 days?: No Have you Ever Experienced Previous Episodes of Alcohol Withdrawal?: No Have you ever Experienced Withdrawal Seizures?: No Have you ever Experienced Delirium Tremens(DT)s?: No Have you ever undergone Alcohol Rehabilitation Treatment (i.e, inpt ot outpatient treatment programs)?: No Have you ever Experienced Blackouts?: No Have you ever Combined Alcohol with other Downers within the last 90 days?: No Have you ever Combined Alcohol with any other Substance of Abuse during the last 90 days?: No Result: 0
[2022-06-03] MEDS: Aspirin 81 MG CHEW 324 MG CH (15:38)
[2022-06-03 15:49] LABS: Abs Immature Grans 0.02 10^3/uL (0.0-0.06); Absolute Basophil Count 0.07 10^3/uL (0.0-0.2); Absolute Eosinophil Count 0.05 10^3/uL (0.0-0.7); Absolute Lymphocyte Count 1.89 10^3/uL (1.2-3.4); Absolute Monocyte Count 0.45 10^3/uL (0.1-0.8); Absolute Neutrophil Count 5.07 10^3/uL (1.2-6.7); Basophils % 0.9; Eosinophils % 0.7; HCT 43.1 % (36.0-46.0); HGB 14.9 g/dL (11.2-15.7); Immature Grans % 0.3; MCH 31.6 pg (27.0-33.0); MCHC 34.6 % (32.0-36.0); MCV 92 fL (80-95); MPV 9.1 fL (8.0-11.0); Neutrophils % 67.1; Platelet Count 317 10^3/uL (130-400); RBC 4.71 10^6/uL (3.93-5.22); RDW 11.6 % (11.7-14.6); RDW-SD 39.2 fL; WBC 7.55 10^3/uL (4.4-10.8)
[2022-06-03 16:07] LABS: ALT 13 U/L (14-59); AST 12 U/L (15-37); Albumin 4.6 g/dL (3.4-5.0); Alkaline Phosphatase 75 U/L (46-116); Anion Gap 12.3 mmol/L (3-11); BUN 12 mg/dL (7-18); Bilirubin, Total 0.4 mg/dL (0.2-1.0); CO2 24.7 mmol/L (21.0-32.0); CREATININE 0.9 mg/dL (0.55-1.02); Calcium 9.3 mg/dL (8.5-10.1); Chloride 104 mmol/L (98-107); Glucose 111 mg/dL (74-106); Potassium 3.3 mmol/L (3.5-5.1); Sodium 141 mmol/L (136-145)
[2022-06-03 16:20] LABS: *AMPHETAMINES SCREEN URINE Negative (Negative); *BARBITURATES SCREEN URINE Negative (Negative); *BENZODIAZEPINES SCREEN URINE Negative (Negative); Cannabinoids THC Negative (Negative); Cocaine Screen,Urine Negative (Negative); METHADONE URINE SCREEN Negative (Negative); OPIATES URINE SCREEN Negative (Negative)
[2022-06-03 16:22] LABS: Tricyclic Antidepressants Negative (Negative)
--- NOTE | 2022-06-03 16:24 | DI.VRAD_ITS ---
PROCEDURE INFORMATION: Exam: XR Chest Exam date and time: 06/03/2022 4:03 PM Age: 36 years old Clinical indication: Other: Chest pain TECHNIQUE: Imaging protocol: Radiologic exam of the chest. Views: 2 views. COMPARISON: CR XR CHEST 2V PA LATERAL 03/25/2020 9:09 PM FINDINGS: Lungs: Unremarkable. No consolidation. Pleural spaces: Unremarkable. No pleural effusion. No pneumothorax. Heart/Mediastinum: Unremarkable. No cardiomegaly. Bones/joints: Unremarkable. IMPRESSION: No acute findings. Dictated and Authenticated by: Kirk Cruz MD. Ordering:ENIO Jimenez MD
[2022-06-03 16:26] LABS: Bilirubin Negative (Negative); Blood Negative (Negative); Clarity Clear (Clear); Glucose Negative (Negative); Ketones Negative (Negative); Leukocyte Esterase Negative (Negative); Nitrite Negative (Negative); Urobilinogen 0.2 EU/dL (Up TO 0.2)
[2022-06-03 16:32] LABS: COVID-19 PCR Negative (Negative); Influenza A PCR Negative (Negative); Influenza B PCR Negative (Negative); RSV PCR Negative (Negative)
[2022-06-03 16:32] LABS: D-Dimer 159 ng/mlFEU (<500)
[2022-06-03 16:35] LABS: Magnesium 1.8 mg/dL (1.8-2.4); Troponin I < 50 ng/L (<or=60)
[2022-06-03 16:36] LABS: Source Nasopharynx
[2022-06-03 19:13] LABS: Troponin I < 50 ng/L (<or=60)
== END 2022-06-03 21:24 | disposition home or self-care (01) ==
PROVIDERS: Emergency Provider Physician Assistant; PCP Nurse Practitioner Family
DX: R07.89 Other chest pain (principal); R00.2 Palpitations; R07.2 Precordial pain; Z20.822 Contact with and (suspected) exposure to COVID-19
CPT/HCPCS: 36415; 80053; 80307; 81025; 87637; 93005; 99284; 71046; 81003; 83735; 84443; 84484; 85025; 85379; 85610; 85730; 93010; 99285

== ENCOUNTER 2022-06-11 20:48 | Emergency (ER) | payer BC, SELFPAY ==
[2022-06-11 21:09] VITALS: BP 142/97; PULSE 77; RESP 16; O2SAT 97
--- NOTE | 2022-06-11 22:30 | RT.EKG_ITS ---
APPROVED REPORT Exam: Resting ECG Reason for Exam: epigastric pain Patient Location: E HR:67 bpm ECG Measurements Heart Rate 67 AXIS WV 150 P 60 QRSd 91 QRS 55 QT 427 T 26 QTc 452 Conclusion Sinus rhythm...normal P axis, V-rate 60- 99
--- NOTE | 2022-06-11 22:30 | DI.CT_ITS ---
Exam(s) CT ABDOMEN PELVIS W EXAM: CT ABDOMEN PELVIS W CLINICAL HISTORY: epigastric pain, worse with eating. TECHNIQUE: Imaging Protocol: Axial computed tomography images with coronal and sagittal reformatted images were created and reviewed CONTRAST MATERIAL: Intravenous: Omnipaque-350 100cc Oral: None COMPARISON: No exams were available for comparison FINDINGS: VISUALIZED LUNG BASES: No nodules nor pleural effusions evident. ABDOMEN: There is no ascites. LIVER: There are no focal hepatic lesions evident. No dilated intrahepatic ducts. GALLBLADDER/BILIARY: No obvious gallbladder pathology. CBD is not dilated. PANCREAS: No evidence of pancreatic mass nor dilatation of the pancreatic duct. SPLEEN: Spleen is not enlarged. No obvious intrasplenic lesions. Splenic and portal veins are paten t. ADRENALS: There are no significant adrenal masses. KIDNEYS:No cysts evident. No solid renal masses. No calculi nor hydronephrosis.. ABDOMINAL AORTA: Abdominal aorta is not enlarged. LYMPH NODES:There is no retroperitoneal nor paraaortic adenopathy. ABDOMINAL WALL: No evidence of significant anterior abdominal wall nor inguinal hernia. GI: There is no evidence of bowel obstruction, free air, nor abscess. PELVIS: GI: No evidence of appendicitis.No evidence of sigmoid diverticulitis. LYMPH NODES: There is no intrapelvic nor inguinal adenopathy. REPRODUCTIVE: Uterus size normal. There is a cyst in the right ovary which measures 2.6 cm. Most pr obably follicular. No abnormal left adnexal findings small full follicles noted in the left ovary. No free fluid in the pelvis. URINARY BLADDER: No calculi nor obvious masses evident OSSEOUS: No fractures and no significant osseous lesions. IMPRESSION: 1. No evidence of acute appendicitis nor diverticulitis. No ascites. 2. There is a cyst in the right ovary measuring 2.6 cm. This has the appearance of a follicular cyst . No other significant adnexal findings. No free fluid RADIATION DOSE DELIVERED: 959.49mGy.cm Total DLP DATA REPOSITORY: All CT scans at this facility are submitted to the National Radiology Data Registry (NRDR) Dose Index Registry (DIR) with the [employer] (A[employer]). RADIATION OPTIMIZATION: All CT scans at this facility use at least one of these dose optimization te chniques: automated exposure control; mA and/or kV adjustment per patient size (includes targeted exa ms where dose is matched to clinical indication); or iterative reconstruction.
--- NOTE | 2022-06-11 22:38 | ED.GENADUL_ITS ---
Discharge Plan Disposition Patient Disposition: Home Condition: Stable Discharge Details Clinical Impression: Gastritis Primary Care Provider: Maxine Cabrera ED Provider: Hunter Harvey Home Meds and New Rx's Prescriptions: New omeprazole 20 mg capsule,delayed release(DR/EC) 20 mg PO DAILY Qty: 30 0RF Discharge Instructions Instructions: Gastritis (ED) Additional Instructions: your cat scan and lab work did not show concerning findings follow up with your primary care provider within 1 week if you feel more ill, have worsening pain or difficulty breathing return to the emergency department Discharge Data Discharge Date/Time-TO BE ENTERED AT DEPARTURE: 06/12/22 01:43 Medical Decision Making Patient is a pleasant 36-year-old female presenting today with chief complaint of epigastric pain radiating into her back. Was here 1 week ago for similar. However, at that point she reports that her pain was more central chest. She did have cardiology work-up which included D-dimer all of which were negative. She states that since then she has been having increased abdominal pain but that her CP has resolved. Pain primarily epigastric with some radiation to the back. Pain has waxed/waned but overall has remained present. Unclear what can exacerbate the symtpoms. On exam, paitent appears nontoxic. Hemodynamically stable. No acute distress. Pain in epigastric region, otherwise nontender. No guarding, rebound or peritoneal findings. No CVA tenderness. No CP with palpation. Lungs clear, nomral cardiac exam. No LE edema, pulses intact in extremities. As patient has already been here for this and pain has persisted, she and I discussed imaging and she would like to move forward with this. Will give PPI, mylanta and zofran for her nausea. Will repeat labs, obtain lipase. Labs reviewed, No signficant abnormality. She does have ketones but this is to be expected. She is receiving hydration. Pain and nausea improved some. At the end of my shift, care transitioned to Dr. Harvey with imaging pending. HPI General Date/Time Provider Initiated Documentation: 06/11/22 20:59 . Limitations to Documentation: no limitations . Information obtained by: patient, RN notes reviewed and old records reviewed . History of Present Illness 36 year old F presents to the emergency department with the chief complaint of epigastric pain, described as moderate, with intensity rated at 7. Quality is described as burning and aching, and is localized to the abdomen. Patient reports radiation to back. Patient started experiencing this week(s) and it has been intermittent. No relieving factors improve symptom(s), No exacerbating factors reported . Patient notes no other symptoms.. Patient did receive the following treatments prior to arrival, none Related Data Home Medications Medication Instructions Recorded Confirmed omeprazole 20 mg capsule,delayed 20 mg PO DAILY #30 caps 06/12/22 release Previous Rx's Medication Instructions Recorded omeprazole 20 mg capsule,delayed 20 mg PO DAILY #30 caps 06/12/22 release Allergies Allergy/AdvReac Type Severity Reaction Status Date / Time Sulfa (Sulfonamide Allergy Severe Anaphylaxsi Verified 06/03/22 15:31 Antibiotics) s amoxicillin [Amoxicillin] Allergy Intermediate Hives Verified 06/03/22 15:31 codeine Allergy Intermediate Hives Verified 06/03/22 15:31 erythromycin base Allergy Intermediate Hives Verified 06/03/22 15:31 [Erythromycin Base] Penicillins Allergy Intermediate Hives Verified 06/03/22 15:31 clindamycin AdvReac chest Verified 06/03/22 15:31 pain/tingling arms General Stated Complaint: Abd Prob NINA: 3 Review of Systems Constitutional Constitutional: Reports as per HPI, Denies chills, Denies fever(s) and Denies headache(s) ENT Ears, Nose, Mouth, and Throat: Denies headache(s) Cardiovascular Cardiovascular: Reports as per HPI, Denies chest pain and Denies dyspnea Respiratory Respiratory: Reports as per HPI, Denies cough and Denies dyspnea Gastrointestinal Gastrointestinal: Reports as per HPI Musculoskeletal Musculoskeletal: Reports as per HPI Integumentary/Breasts Skin/Breast: Reports as per HPI and Denies rash Neurologic Neurologic: Reports as per HPI and Denies headache(s) [facility] All Active Problems (Updated 06/12/22 @ 01:27 by Hunter Harvey MD) Palpitations (Acute) Chest pressure (Acute) Gastritis (Acute) History of eczema (Acute) Medical History No significant past medical history Surgical History Knee surgery 1999 Tonsillectomy (~2004) W/O C/O Family History Paternal Uncle No problems noted. Self Adopted Social History Smoking/Tobacco Use Status: Former Tobacco Use Smoking risk assessment performed?: Yes Alcohol Intake: current Alcohol Intake frequency: a few times a month Drug use: Never Substance use type: does not use Do you feel safe at home: Yes Do you feel safe in your relationship?: Yes Exam Const General: cooperative, healthy appearing, comfortable, no acute distress and well developed Nutritional Appearance: average body habitus and well nourished Orientation: alert and awake HENME Head: normal to inspection Mouth: moist mucous membranes Resp Effort & Inspection: normal respiratory effort, able to speak in complete sentences and no respiratory distress Auscultation: clear to auscultation bilaterally, no rales, no rhonchi and no wheezes Cardio Rate: regular rate Rhythm: regular rhythm Heart Sounds: S1 normal and S2 normal GI Inspection: normal to inspection, no edema and non-distended Palpation: soft, no hepatosplenomegaly, not firm, no guarding, no hepatosplenomegaly and tender in the epigastrum; Waldrop's sign negative and with no rebound tenderness Percussion: normal to percussion Auscultation: normal bowel sounds Back/Spine/Pelvis Back: no CVA tenderness Skin General skin exam: no rashes or lesions noted Trauma: no lacerations or abrasions Neuro General: patient alert and patient awake Cognition: normal cognition Speech: speech normal Gait: normal gait Psych Appearance: grossly normal and well kempt Mental Status: mental status grossly normal Speech and Movement: speech and movement normal Course Vital Signs Vital signs: Vital Signs Pulse 77 06/11/22 21:09 Respiratory Rate 16 06/11/22 21:09 Blood Pressure 142/97 H 06/11/22 21:09 Pulse Oximetry 97 06/11/22 21:09 Pulse 77 06/11/22 21:09 Respiratory Rate 16 06/11/22 21:09 Respiratory Effort Normal 06/11/22 21:13 Blood Pressure 142/97 H 06/11/22 21:09 Blood Pressure Position Sitting 06/11/22 21:09 Pulse Oximetry 97 06/11/22 21:09 Oxygen Delivery Method Room Air 06/11/22 21:09 Oxygen Flow Rate 0 06/11/22 21:09 Pain Level 7 06/11/22 21:09 Sign Out Sign Out Data: Sign Out Comment: Care transitioned to Dr. Harvey with CT pending. Here with increased acid reflux, epigastric pain. Labs unremarkable. Received Mylanta and Protonix. Likely d/c to home after CT, will need increased treatment for GERD . Last updated by Ely Nieves PA at 06/12/22 00:12 PAWSS Have you Been Recently Intoxicated or Drunk Within the Last 30 days?: No Have you Ever Experienced Previous Episodes of Alcohol Withdrawal?: No Have you ever Experienced Withdrawal Seizures?: No Have you ever Experienced Delirium Tremens(DT)s?: No Have you ever undergone Alcohol Rehabilitation Treatment (i.e, inpt ot outpatient treatment programs)?: No Have you ever Experienced Blackouts?: No Have you ever Combined Alcohol with other Downers within the last 90 days?: No Have you ever Combined Alcohol with any other Substance of Abuse during the last 90 days?: No Positive Blood Alcohol level on Presentation? [PCS.BAL]: No Evidence of Increased Autonomic Activity (i.e. HR>120, tremor, sweating, agitation, nausea)?: No Result: 0
[2022-06-11 23:15] LABS: Abs Immature Grans 0.02 10^3/uL (0.0-0.06); Absolute Basophil Count 0.05 10^3/uL (0.0-0.2); Absolute Eosinophil Count 0.08 10^3/uL (0.0-0.7); Absolute Lymphocyte Count 1.96 10^3/uL (1.2-3.4); Absolute Neutrophil Count 5.08 10^3/uL (1.2-6.7); Basophils % 0.6; HCT 37.4 % (36.0-46.0); Immature Grans % 0.3; Lymphocytes % 25.2; MCH 31.4 pg (27.0-33.0); MCHC 34.8 % (32.0-36.0); MCV 90 fL (80-95); MPV 9.1 fL (8.0-11.0); Monocytes % 7.7; Neutrophils % 65.2; Platelet Count 277 10^3/uL (130-400); RBC 4.14 10^6/uL (3.93-5.22); RDW 11.8 % (11.7-14.6); RDW-SD 38.7 fL; WBC 7.79 10^3/uL (4.4-10.8)
[2022-06-11] MEDS: Mylanta Suspension 30 ML CUP 20 ML PO (23:22)
[2022-06-11] MEDS: Normal Saline 1,000 ML 1000 ML IV (23:23)
[2022-06-11] MEDS: Ondansetron 4 MG/2 ML VIAL IVP (23:23)
[2022-06-11] MEDS: Pantoprazole 40 MG VIAL IVP (23:24)
[2022-06-11 23:33] LABS: ALT 11 U/L (14-59); AST 13 U/L (15-37); Albumin 4.1 g/dL (3.4-5.0); Alkaline Phosphatase 60 U/L (46-116); Anion Gap 6.7 mmol/L (3-11); BUN 8 mg/dL (7-18); Bilirubin, Total 0.6 mg/dL (0.2-1.0); CO2 29.3 mmol/L (21.0-32.0); CREATININE 0.7 mg/dL (0.55-1.02); Calcium 9.3 mg/dL (8.5-10.1); Chloride 103 mmol/L (98-107); Estimated GFR 115.59 (mL/min/1.73m2); Glucose 88 mg/dL (74-106); Lipase 28 U/L (16-77); Magnesium 1.9 mg/dL (1.8-2.4); Potassium 3.5 mmol/L (3.5-5.1); Sodium 139 mmol/L (136-145); Total Protein 6.8 g/dL (6.4-8.2); Troponin I < 50 ng/L (<or=60)
[2022-06-11] MEDS: Omnipaque 350 MG/ML 100 ML BTL IJ (23:56)
[2022-06-12] MEDS: Normal Saline Flush 10 ML SYR IVP (00:22)
[2022-06-12] MEDS: Normal Saline - Diluent 50 ML VIAL IJ (00:22)
[2022-06-12 00:26] LABS: Bilirubin Negative (Negative); Blood Negative (Negative); Clarity Sl Cloudy (Clear); Glucose Negative (Negative); Ketones 40 mg/dL (Negative); Leukocyte Esterase Negative (Negative); Nitrite Negative (Negative); Urobilinogen 0.2 EU/dL (Up TO 0.2); pH 6.5 (5-8)
--- NOTE | 2022-06-12 01:05 | DI.VRAD_ITS ---
PROCEDURE INFORMATION: Exam: CT Abdomen And Pelvis With Contrast Exam date and time: 06/12/2022 12:15 AM Age: 36 years old Clinical indication: Abdominal pain; Patient HX: Epigastric pain, worse with eating TECHNIQUE: Imaging protocol: Computed tomography of the abdomen and pelvis with contrast. Radiation optimization: All CT scans at this facility use at least one of these dose optimization techniques: automated exposure control; mA and/or kV adjustment per patient size (includes targeted exams where dose is matched to clinical indication); or iterative reconstruction. Contrast material: OMNIPAQUE 350; Contrast volume: 100 ml; Contrast route: INTRAVENOUS (IV); COMPARISON: OB US 2-3 TRIMESTER TRANSABD*P 01/14/2017 3:56 PM FINDINGS: Liver: Normal. No mass. Gallbladder and bile ducts: Normal. No calcified stones. No ductal dilation. Pancreas: Normal. No ductal dilation. Spleen: Normal. No splenomegaly. Adrenal glands: Normal. No mass. Kidneys and ureters: Normal. No hydronephrosis. Stomach and bowel: Unremarkable. No obstruction. No mucosal thickening. Appendix: No evidence of appendicitis. Intraperitoneal space: Unremarkable. No free air. No significant fluid collection. Vasculature: Unremarkable. No abdominal aortic aneurysm. Lymph nodes: Unremarkable. No enlarged lymph nodes. Urinary bladder: Unremarkable as visualized. Reproductive: 2.8 cm right ovarian cyst. Bones/joints: Unremarkable. No acute fracture. Soft tissues: Small fat containing periumbilical hernia IMPRESSION: No acute findings. 2.8 cm right ovarian cyst Nonspecific nonobstructed bowel gas pattern Dictated and Authenticated by: Jagdeep Springer MD. Ordering:SILVIA Graves MD
--- NOTE | 2022-06-12 01:26 | W.EDPROG ---
Date of service: 06/12/22 Time of Service: 01:26 Medical Decision Making pt signed out to me pending ct results which are negative. Labs unremarkable. She describes a burning sensation in the epigastric area that seems likely gerd vs gastritis. She has no tenderness on exam and no lower abdominal tenderness so doubt that her cyst of her ovary is the cause of her pain. She is stable for d/c, will place on ppi and have her f/u with pcp, return precautions given Imaging Data Radiologic Study: Attestation: I personally reviewed and interpreted this imaging study as follows: Imaging: CT Scan Radiologist's impression: IMPRESSION: No acute findings. 2.8 cm right ovarian cyst Nonspecific nonobstructed bowel gas pattern Sign Out Sign Out Data: Sign Out Comment: Care transitioned to Dr. Harvey with CT pending. Here with increased acid reflux, epigastric pain. Labs unremarkable. Received Mylanta and Protonix. Likely d/c to home after CT, will need increased treatment for GERD . Last updated by Ely Nieves PA at 06/12/22 00:12 Discharge Plan Disposition Patient Disposition: Home Condition: Stable Discharge Details Clinical Impression: Gastritis Primary Care Provider: Maxine Cabrera ED Provider: Hunter Harvey Home Meds and New Rx's Prescriptions: New omeprazole 20 mg capsule,delayed release(DR/EC) 20 mg PO DAILY Qty: 30 0RF Discharge Instructions Instructions: Gastritis (ED) Additional Instructions: your cat scan and lab work did not show concerning findings follow up with your primary care provider within 1 week if you feel more ill, have worsening pain or difficulty breathing return to the emergency department
[2022-06-12 01:41] VITALS: BP 107/68; PULSE 68; RESP 16; TEMP 36.7; O2SAT 96
== END 2022-06-12 01:43 | disposition home or self-care (01) ==
PROVIDERS: Physician Assistant; Emergency Provider Emergency Medicine; PCP Nurse Practitioner Family
DX: K29.70 Gastritis, unspecified, without bleeding (principal)
CPT/HCPCS: 80053; 81025; 83690; 93005; 96360; 99285; 74177; 81003; 83735; 84484; 85025; 93010; 99284; J2405; J3490

== ENCOUNTER 2022-09-13 14:16 | Outpatient (REF) | payer BC, SELFPAY | END 2022-09-13 14:17 | disposition home or self-care (01) | LOC: NCHCN 14:16 | PROVIDERS: PCP Nurse Practitioner Family; Visit Provider Nurse Practitioner Family | DX: N76.4 Abscess of vulva (principal) | CPT/HCPCS: 87070; 87205 ==

== ENCOUNTER 2022-10-12 10:30 | Outpatient (REF) | payer BC, SELFPAY | END 2022-10-12 10:31 | disposition home or self-care (01) | LOC: LBN 10:30 | PROVIDERS: PCP Nurse Practitioner Family; Visit Provider Physician Assistant Medical | DX: J02.9 Acute pharyngitis, unspecified (principal) | CPT/HCPCS: 87081 ==

== ENCOUNTER 2023-01-29 11:33 | Emergency (ER) | payer BC, SELFPAY ==
--- NOTE | 2023-01-29 11:30 | RT.EKG_ITS ---
APPROVED REPORT Exam: Resting ECG Reason for Exam: chest pain Patient Location: E HR:84 bpm ECG Measurements Heart Rate 84 AXIS NC 128 P 63 QRSd 94 QRS 50 QT 380 T 10 QTc 450 Conclusion Sinus rhythm...normal P axis, V-rate 60- 99
[2023-01-29 11:35] VITALS: BP 137/87; PULSE 77; RESP 15; TEMP 36.8; O2SAT 99
[2023-01-29 11:39] VITALS: RESP 16
--- NOTE | 2023-01-29 11:45 | DI.RAD_ITS ---
Exam(s) XR CHEST 2V PA LATERAL EXAM: XR CHEST 2V PA LATERAL CLINICAL HISTORY: Chest Pain TECHNIQUE: 2D digital imaging was performed. COMPARISON: CR,XR XR CHEST 2V PA LATERAL from 06/03/2022 FINDINGS: HEART: Normal size. Aorta: Not dilated. PULMONARY VASCULATURE: Normal. LUNGS: Clear. PLEURAL SPACE: No pleural effusion or pneumothorax. BONE:Unremarkable for age. IMPRESSION: No acute abnormality. DATA REPOSITORY: RADIATION DOSE DELIVERED:
--- NOTE | 2023-01-29 11:56 | ED.GENADUL_ITS ---
Discharge Plan Disposition Patient Disposition: Home Condition: Stable Discharge Details Clinical Impression: Chest pain Primary Care Provider: Kirk Sue ED Provider: Ritika Sprague Home Meds and New Rx's Prescriptions: No Action escitalopram oxalate 10 mg tablet 10 mg PO DAILY Patient Comments: TAKE ONE TABLET BY MOUTH EVERY MORNING omeprazole 20 mg capsule,delayed release(DR/EC) 20 mg PO DAILY Qty: 30 0RF Patient Comments: no longer taking 01/29/23 CT Discharge Instructions Instructions: Chest Pain (ED) Additional Instructions: No evidence of cardiac, or lung abnormality. No pneumonia, no evidence of blood clot. Follow up with primary care provider in 3-5 days. Return to ED sooner if any worsening or concerns. Increase oral fluids. Please take Tylenol or Ibuprofen with food every 4-6 hours as needed for pain and swelling. Referrals: Kirk Sue, LIFT SLAB OPERATOR [Primary Care Provider] - 3 days Medical Decision Making 37-year-old female presents to the ER with chief complaint of shortness of breath which has resolved, chest pain and left jaw pain which began this morning. Patient denies any cough fever nausea vomiting diarrhea or any other associated symptoms. No History of cardiac disease. She reports that she has been worked up for chest pain genitourinary anxiety. She is not a smoker, denies any control denies any recent long trips or car plane. She reports that she is fixing to go on a long trip. EKG was reviewed by Dr. Arriaza ER attending, normal sinus rhythm. LVH eval reviewed. Please see his official report. Work-up ordered including CBC and CMP troponin D-dimer chest x-ray.. CBC within normal limits no leukocytosis, D-dimer also within normal limits 190, CMP within normal limits. Troponin less than 50. Chest x-ray shows no acute cardiopulmonary abnormality. Patient discharged to home with instructions to follow-up with PCP. This text was generated using [employer] system, please disregard any oddities of phrase or misspellings. Medical Records Medical records reviewed: Yes I reviewed the patient's medical records. Imaging Data Radiologic Study: Imaging: X-Ray Radiologist's impression: EXAM:? XR CHEST 2V PA ? LATERAL CLINICAL HISTORY:? Chest Pain TECHNIQUE:? 2D digital imaging was performed. COMPARISON:? CR,XR XR CHEST 2V PA ? LATERAL from 06/03/2022 FINDINGS: HEART: Normal size.? Aorta: Not dilated. PULMONARY VASCULATURE: Normal. LUNGS: Clear. ? PLEURAL SPACE: No pleural effusion or pneumothorax. BONE:Unremarkable for age.? IMPRESSION: No acute abnormality.? Lab Data Lab results reviewed: Yes I reviewed the patient's lab results. Labs: Laboratory Tests Range/Units 01/29/23 01/29/23 01/29/23 12:24 12:24 12:24 WBC (4.4-10.8) 10^3/uL 5.57 RBC (3.93-5.22) 10^6/uL 4.53 Hgb (11.2-15.7) g/dL 14.8 Hct (36.0-46.0) % 42.4 MCV (80-95) fL 94 MCH (27.0-33.0) pg 32.7 MCHC (32.0-36.0) % 34.9 RDW (11.7-14.6) % 11.8 Plt Count (130-400) 10^3/uL 287 MPV (8.0-11.0) fL 8.9 Immature Gran % 0.4 Neutrophils % 76.1 Lymphocytes % 17.2 Monocytes % 4.7 Eosinophils % 0.7 Basophils % 0.9 Nucleated RBC % (0.0-0.3) % 0.0 Absolute Neutrophils (1.2-6.7) 10^3/uL 4.24 Absolute Lymphocytes (1.2-3.4) 10^3/uL 0.96 L Absolute Monocytes (0.1-0.8) 10^3/uL 0.26 Absolute Eosinophils (0.0-0.7) 10^3/uL 0.04 Absolute Basophils (0.0-0.2) 10^3/uL 0.05 D-Dimer Cancelled Sodium Cancelled Potassium Cancelled Chloride Cancelled Carbon Dioxide Cancelled Anion Gap Cancelled BUN Cancelled Creatinine Cancelled Est GFR (CKD-EPI 2020) Cancelled Glucose Cancelled Calcium Cancelled Magnesium Cancelled Total Bilirubin Cancelled AST Cancelled ALT Cancelled Alkaline Phosphatase Cancelled Troponin I Cancelled Total Protein Cancelled Albumin Cancelled Range/Units 01/29/23 01/29/23 13:22 13:22 WBC (4.4-10.8) 10^3/uL RBC (3.93-5.22) 10^6/uL Hgb (11.2-15.7) g/dL Hct (36.0-46.0) % MCV (80-95) fL MCH (27.0-33.0) pg MCHC (32.0-36.0) % RDW (11.7-14.6) % Plt Count (130-400) 10^3/uL MPV (8.0-11.0) fL Immature Gran % Neutrophils % Lymphocytes % Monocytes % Eosinophils % Basophils % Nucleated RBC % (0.0-0.3) % Absolute Neutrophils (1.2-6.7) 10^3/uL Absolute Lymphocytes (1.2-3.4) 10^3/uL Absolute Monocytes (0.1-0.8) 10^3/uL Absolute Eosinophils (0.0-0.7) 10^3/uL Absolute Basophils (0.0-0.2) 10^3/uL D-Dimer 190 Sodium 138 Potassium 3.5 Chloride 103 Carbon Dioxide 27.6 Anion Gap 7.4 BUN 8 Creatinine 0.6 Est GFR (CKD-EPI 2020) 119.23 Glucose 95 Calcium 9.3 Magnesium 2.1 Total Bilirubin 0.5 AST 13 L ALT 14 Alkaline Phosphatase 70 Troponin I < 50 Total Protein 7.6 Albumin 4.1 HPI General Mode of arrival: ambulatory . Date/Time Provider Initiated Documentation: 01/29/23 11:51 . Limitations to Documentation: no limitations . Information obtained by: patient, RN notes reviewed and old records reviewed . HPI Narrative: 37-year-old female presents to the ER with chief complaint of shortness of breath which has resolved, chest pain and left jaw pain which began this morning. Patient denies any cough fever nausea vomiting diarrhea or any other associated symptoms. No History of cardiac disease. She reports that she has been worked up for chest pain genitourinary anxiety. She is not a smoker, denies any control denies any recent long trips or car plane. She reports that she is fixing to go on a long trip. Related Data Home Medications Medication Instructions Recorded Confirmed omeprazole 20 mg capsule,delayed 20 mg PO DAILY #30 caps 06/12/22 release escitalopram oxalate 10 mg tablet 10 mg PO DAILY 01/29/23 01/29/23 Previous Rx's Medication Instructions Recorded omeprazole 20 mg capsule,delayed 20 mg PO DAILY #30 caps 06/12/22 release Allergies Allergy/AdvReac Type Severity Reaction Status Date / Time Sulfa (Sulfonamide Allergy Severe Anaphylaxsi Verified 01/29/23 11:43 Antibiotics) s amoxicillin [Amoxicillin] Allergy Intermediate Hives Verified 01/29/23 11:43 codeine Allergy Intermediate Hives Verified 01/29/23 11:43 erythromycin base Allergy Intermediate Hives Verified 01/29/23 11:43 [Erythromycin Base] Penicillins Allergy Intermediate Hives Verified 01/29/23 11:43 clindamycin AdvReac chest Verified 01/29/23 11:43 pain/tingling arms General Stated Complaint: Chest Pain NINA: 3 Review of Systems All systems reviewed & are unremarkable except as noted in HPI and below Cardiovascular Cardiovascular: Reports chest pain PFSH All Active Problems (Updated 01/29/23 @ 14:06 by Ritika Sprague NP) Chest pain (Acute) History of eczema (Acute) Medical History No significant past medical history Surgical History Knee surgery 1998 Tonsillectomy (~2004) W/O C/O Family History Paternal Uncle No problems noted. Self Adopted Social History Smoking/Tobacco Use Status: Former Tobacco Use Smoking risk assessment performed?: Yes Alcohol Intake: current Alcohol Intake frequency: a few times a month Drug use: Never Substance use type: does not use Housing: house Do you feel safe at home: Yes Do you feel safe in your relationship?: Yes Exam Narrative Exam Narrative: Constitutional: Alert and oriented x3. Appears stated age. Normal body habitus. Head: Normocephalic, no trauma. Eyes: Pupils PERRL, Red reflex noted, EOM's intact. Eyelids symmetrical without lesions, discharge, or swelling. ENT: Bilateral TM's WNL, External ear normal to inspection, no mastoid TTP, swelling, or erythema, Nasal turbinates WNL, no nasal discharge. Normal dentition, Posterior pharynx WNL, no exudate. Chest: RRR, Normal S1, S2, distal pulses intact. Resp: Lungs clear to auscultation bilaterally, no wheezes, rales, or rhonchi. Abdomen: Soft, non-distended, Normoactive bowel sounds all 4 quads. Musculoskeletal: Normal gait, 5/5 strength to all four extremities. Skin: No suspicious rashes or lesions. Capillary refill less than 2 sec. Neurologic: Cranial nerves II-XII intact. Alert and oriented x 3. Motor: No deficits noted. Sensory: Intact bilaterally all 4 extremities. Reflexes: DTR's intact bilaterally.. Hematologic/Lymphatic: No ecchymosis, no lymphadenopathy. Course Vital Signs Vital signs: Vital Signs Temperature 36.8 C 01/29/23 11:35 Pulse 77 01/29/23 11:35 Respiratory Rate 15 01/29/23 11:35 Blood Pressure 137/87 01/29/23 11:35 Pulse Oximetry 99 01/29/23 11:35 Temperature 36.8 C 01/29/23 11:35 Temperature Source Temporal Artery Scan 01/29/23 11:35 Pulse 77 01/29/23 11:35 Respiratory Rate 16 01/29/23 11:39 Respiratory Effort Non-Labored, Short of Breath 01/29/23 11:39 Respiratory Depth Normal 01/29/23 11:39 Respiratory Pattern Normal 01/29/23 11:39 Blood Pressure 137/87 01/29/23 11:35 Blood Pressure Position Sitting 01/29/23 11:35 Pulse Oximetry 99 01/29/23 11:35 Oxygen Delivery Method Room Air 01/29/23 11:35 Oxygen Flow Rate 0 01/29/23 11:35 Pain Level 5 01/29/23 11:39 PAWSS Have you Been Recently Intoxicated or Drunk Within the Last 30 days?: No Have you Ever Experienced Previous Episodes of Alcohol Withdrawal?: No Have you ever Experienced Withdrawal Seizures?: No Have you ever Experienced Delirium Tremens(DT)s?: No Have you ever undergone Alcohol Rehabilitation Treatment (i.e, inpt ot outpatient treatment programs)?: No Have you ever Experienced Blackouts?: No Have you ever Combined Alcohol with other Downers within the last 90 days?: No Have you ever Combined Alcohol with any other Substance of Abuse during the last 90 days?: No Result: 0
[2023-01-29 12:39] LABS: Abs Immature Grans 0.02 10^3/uL (0.0-0.06); Absolute Basophil Count 0.05 10^3/uL (0.0-0.2); Absolute Eosinophil Count 0.04 10^3/uL (0.0-0.7); Absolute Lymphocyte Count 0.96 10^3/uL (1.2-3.4); Absolute Monocyte Count 0.26 10^3/uL (0.1-0.8); Absolute Neutrophil Count 4.24 10^3/uL (1.2-6.7); Basophils % 0.9; Eosinophils % 0.7; HCT 42.4 % (36.0-46.0); HGB 14.8 g/dL (11.2-15.7); Immature Grans % 0.4; Lymphocytes % 17.2; MCH 32.7 pg (27.0-33.0); MCHC 34.9 % (32.0-36.0); MCV 94 fL (80-95); MPV 8.9 fL (8.0-11.0); Monocytes % 4.7; Neutrophils % 76.1; Platelet Count 287 10^3/uL (130-400); RBC 4.53 10^6/uL (3.93-5.22); RDW 11.8 % (11.7-14.6); RDW-SD 40.9 fL; WBC 5.57 10^3/uL (4.4-10.8)
[2023-01-29 13:46] LABS: ALT 14 U/L (14-59); AST 13 U/L (15-37); Albumin 4.1 g/dL (3.4-5.0); Alkaline Phosphatase 70 U/L (46-116); Anion Gap 7.4 mmol/L (3-11); BUN 8 mg/dL (7-18); Bilirubin, Total 0.5 mg/dL (0.2-1.0); CO2 27.6 mmol/L (21.0-32.0); CREATININE 0.6 mg/dL (0.55-1.02); Calcium 9.3 mg/dL (8.5-10.1); Chloride 103 mmol/L (98-107); Estimated GFR 119.23 (mL/min/1.73m2); Glucose 95 mg/dL (74-106); Magnesium 2.1 mg/dL (1.8-2.4); Potassium 3.5 mmol/L (3.5-5.1); Sodium 138 mmol/L (136-145); Total Protein 7.6 g/dL (6.4-8.2); Troponin I < 50 ng/L (<or=60)
[2023-01-29 14:03] LABS: D-Dimer 190 ng/mlFEU (<500)
[2023-01-29 14:14] VITALS: BP 130/78; PULSE 78; RESP 16; O2SAT 98
== END 2023-01-29 14:18 | disposition home or self-care (01) ==
PROVIDERS: Emergency Provider Registered Nurse Emergency; PCP Nurse Practitioner Family
DX: R07.9 Chest pain, unspecified (principal); R06.02 Shortness of breath; Z87.891 Personal history of nicotine dependence
CPT/HCPCS: 36415; 80053; 81025; 93005; 99283; 71046; 83735; 84484; 85025; 85379; 93010

== ENCOUNTER 2023-05-03 08:21 | Outpatient (RCR) | payer BC, SELFPAY ==
--- NOTE | 2023-05-03 08:30 | HOLTER_ITS ---
APPROVED REPORT Exam Type: HOLTER MONITOR APPLICATION Reason for Test: PALPITATIONS Patient Location: O Conclusion 1. Sinus rhythm,rate 59-119 (average 75) bpm 2. Rare PAC'S,no SVT. 3.No ventricular ectopy 4. No pauces.
== END 2023-05-29 23:59 | disposition home or self-care (01) ==
LOC: CARDOPNVT 08:21
PROVIDERS: PCP Nurse Practitioner Family; Visit Provider Internal Medicine Cardiovascular Disease
DX: R00.2 Palpitations (principal)
CPT/HCPCS: 93225; 93226

== ENCOUNTER 2023-08-23 14:43 | Outpatient (REF) | payer BC, SELFPAY ==
[2023-08-23 19:43] LABS: Abs Immature Grans 0.01 10^3/uL (0.0-0.06); Absolute Basophil Count 0.07 10^3/uL (0.0-0.2); Absolute Eosinophil Count 0.09 10^3/uL (0.0-0.7); Absolute Lymphocyte Count 1.65 10^3/uL (1.2-3.4); Absolute Monocyte Count 0.58 10^3/uL (0.1-0.8); Absolute Neutrophil Count 4.11 10^3/uL (1.2-6.7); Basophils % 1.1; Eosinophils % 1.4; HCT 41.7 % (36.0-46.0); HGB 14.7 g/dL (11.2-15.7); Immature Grans % 0.2; Lymphocytes % 25.3; MCH 32.5 pg (27.0-33.0); MCHC 35.3 % (32.0-36.0); MCV 92 fL (80-95); MPV 10.1 fL (8.0-11.0); Monocytes % 8.9; Neutrophils % 63.1; Platelet Count 311 10^3/uL (130-400); RBC 4.53 10^6/uL (3.93-5.22); RDW 11.8 % (11.7-14.6); RDW-SD 39.9 fL; WBC 6.51 10^3/uL (4.4-10.8)
[2023-08-23 20:16] LABS: ALT 24 U/L (14-59); AST 19 U/L (15-37); Albumin 4.1 g/dL (3.4-5.0); Alkaline Phosphatase 78 U/L (46-116); BUN 15 mg/dL (7-18); Bilirubin, Total 0.4 mg/dL (0.2-1.0); CREATININE 0.8 mg/dL (0.55-1.02); Calcium 8.9 mg/dL (8.5-10.1); Chloride 102 mmol/L (98-107); Estimated GFR 97.26 (mL/min/1.73m2); FREE T4 0.84 ng/dL (0.76-1.46); Glucose 93 mg/dL (74-106); Potassium 4.4 mmol/L (3.5-5.1); Sodium 138 mmol/L (136-145); TSH 2.58 uIU/Ml (0.36-3.74); Total Protein 7.6 g/dL (6.4-8.2)
== END 2023-08-23 14:44 | disposition home or self-care (01) ==
LOC: NCHCN 14:43
PROVIDERS: Visit Provider Nurse Practitioner Family
DX: R55 Syncope and collapse (principal)
CPT/HCPCS: 80053; 84439; 84443; 85025

== ENCOUNTER 2023-08-30 08:27 | Outpatient (CLI) | payer BC, SELFPAY | END 2023-08-30 08:28 | disposition home or self-care (01) | PROVIDERS: Visit Provider Nurse Practitioner Family | DX: R55 Syncope and collapse (principal) | CPT/HCPCS: 93270 ==

== ENCOUNTER 2023-10-01 06:49 | Outpatient (CLI) | payer BC, SELFPAY ==
--- NOTE | 2023-10-01 08:26 | W.CARDEVENT ---
Date of service: 10/01/23 Time of Service: 08:26 Cardiac Event Recorder Referring Provider:: Cathy Enriquez Indications:: Syncope Cardiac Event Note: This is a cardiac event monitor. Patient was monitored for 29 days and 9 hours. Rhythm throughout was sinus. Average heart rate overall was 79. Maximum was 184. Minimum was 52 There was no atrial fibrillation, no high-grade AV block, no pauses greater than 3 seconds There were no significant atrial or ventricular dysrhythmias Symptoms were reported which corresponded to sinus rhythm, with rates generally 70-90
== END 2023-10-01 06:50 | disposition home or self-care (01) ==
LOC: CARDOPNVT 06:49
PROVIDERS: Visit Provider Internal Medicine Cardiovascular Disease
DX: R55 Syncope and collapse (principal)

== ENCOUNTER 2023-12-10 22:41 | Outpatient (REF) | payer BC, SELFPAY ==
[2023-12-10 21:58] LABS: Abs Immature Grans 0.02 10^3/uL (0.0-0.06); Absolute Basophil Count 0.09 10^3/uL (0.0-0.2); Absolute Eosinophil Count 0.23 10^3/uL (0.0-0.7); Absolute Lymphocyte Count 1.56 10^3/uL (1.2-3.4); Absolute Monocyte Count 0.46 10^3/uL (0.1-0.8); Absolute Neutrophil Count 5.16 10^3/uL (1.2-6.7); Basophils % 1.2 %; Eosinophils % 3.1 %; HCT 43.5 % (36.0-46.0); HGB 14.8 g/dL (11.2-15.7); Immature Grans % 0.3 %; Lymphocytes % 20.7 %; MCH 32.5 pg (27.0-33.0); MCV 95 fL (80-95); MPV 9.9 fL (8.0-11.0); Monocytes % 6.1 %; Neutrophils % 68.6 %; Platelet Count 312 10^3/uL (130-400); RBC 4.56 10^6/uL (3.93-5.22); RDW 11.8 % (11.7-14.6); RDW-SD 40.9 fL; WBC 7.52 10^3/uL (4.4-10.8)
[2023-12-10 22:35] LABS: AST 18 U/L (15-37); Albumin 4.4 g/dL (3.4-5.0); Alkaline Phosphatase 91 U/L (46-116); Anion Gap 10.5 mmol/L (3-11); BUN 11 mg/dL (7-18); Bilirubin, Total 0.23 mg/dL (0.2-1.0); CO2 28.5 mmol/L (21.0-32.0); CREATININE 0.8 mg/dL (0.55-1.02); Calcium 9.3 mg/dL (8.5-10.1); Chloride 102 mmol/L (98-107); Estimated GFR 97.26 (mL/min/1.73m2); Folate 13.8 ng/mL (8.6-20.0); Glucose 95 mg/dL (74-106); Potassium 3.9 mmol/L (3.5-5.1); Sodium 141 mmol/L (136-145); TSH 1.56 uIU/Ml (0.36-3.74); Total Protein 7.9 g/dL (6.4-8.2); Vitamin B12 421 pg/mL (193-986)
[2023-12-10 22:59] LABS: ALT 29 U/L (14-59)
--- OUTSIDE RECORDS SUMMARY | 2023-12-10 22:59 | XMS_ITS | Clinical Summary ---
Author Organization [facility] Address [address] [place] [address] Care Team Providers Care Cold Roll Operator Name Role Phone Radha Madrigal [employer] WASHER Primary Care Provider [phone] Social History Tobacco Use Types Packs/Day Years Used Date Smoking Tobacco: Never Assessed Sex and Gender Information Value Date Recorded Sex Assigned at Not on file Gender Identity Not on file Sexual Orientation Not on file Plan of Treatment Health Maintenance Due Date Last Done Comments Hepatitis C Screen 1986 Hepatitis B Vaccine (1 of 3 - 19+ 3-dose series) 07/02 COVID-19 Vaccine (2022- season) 2022 Care Teams Cold Roll Operator Relationship Specialty Start Date End Date Radha Madrigal NP [address] [place] [id number] PCP - General 06/16/13
--- OUTSIDE RECORDS SUMMARY | 2023-12-10 22:59 | XMS_ITS | Encounter Summary ---
Author Organization Health system Address [address] [place] [address] Care Team Providers Care Plastic Surgery Specialist Name Role Phone Radha Madrigal FITNESS MANAGEMENT DIRECTOR Primary Care Provider [phone] Encounter Details Date Type Department Care Team (Late st Contact Info) Description 04/05/2021 Lab Requisition [facility] Pathology & Laboratory Medicine - [facility] [address] [place] [address] Deyanira Taylor, [facility] [address] [place] [address] [place] [address] Encounter for other general examination Social History Tobacco Use Types Packs/Day Years Used Date Smoking Tobacco: Never Assessed Sex and Gender Information Value Date Recorded Sex Assigned at Not on file Gender Identity Not on file Sexual Orientation Not on file documented as of this encounter Plan of Treatment Not on file documented as of this encounter Procedures Procedure Name Priority Date/Time Associated Diagnosis Comments PAP TEST Today 04/04/2021 9:30 EST Encounter for other general examination HPV DNA DETECTION WITH GENOTYPING, PCR Today 04/04/2021 9:30 EST Encounter for other general examination documented in this encounter Results * (ABNORMAL) HUMAN PAPILLOMAVIRUS (HPV) DETECTION-HIGH RISK TYPES (04/04/2021 9:30 EST) HPV other High Risk types, PCR Positive( A) Negative 04/13/2021 8:[address] [facility] Comment:E6 OR E7 mRNA from o ne or more types of HPV types 16,18,31,33,35,39,45,51,52,56,58,59,66, and 68 is detected by player development manager mediated amplification. High and intermediate risk HPV types are associated with most squamous intraepithelial lesions and cervical cancers. Papanicolaou smear specimen (specimen) CERVIX UTERI STRUCTURE / Unknown 04/04/2021 9:30 EST 04/11/2021 10:13 EST Deyanira Iglesiasgood LIVE IN HOUSEKEEPER NANNY MICROBIOLOGY - GENER AL ORDERABLES [facility] [address] [place] [address] * PAP TEST (04/04/2021 9:30 EST) Specimens A. Cervix and/or Endocervix , ThinPrep Imaging System with Manual Evaluation 04/13/2021 8:46 [facility] Specimen Adequacy Satisfactory for Evaluation - transformation zone component present 04/13/2021 8:46 [facility] General Categorization Negative for intraepithelial lesion or malignancy 04/13/2021 8:46 [facility] Attestation . 04/13/2021 8:46 [facility] at 0846 Clinical History See below 04/13/20 8:46 [facility] HPV The result for the Human Papillomavirus (HPV) Detection-High Risk Types is Positive . E6 OR E7 mRNA from one or more types of HPV types 16,18,31,33,35,39 ,45,51,52,56,58,5 9,66, and 68 is detected by player development manager mediated amplification. High and intermediate risk HPV types are associated with most squamous intraepithelial lesions and cervical cancers. Testing was performed on specimen [id number] and was resulted on 04/13/2021 0836 EST by [place], LAB INSTRUMENT RESULTS IN 04/13/2021 8:46 [facility] Performing Lab [facility] 04/13/2021 8:46 [facility] Scanned Images 04/13/2021 8:46 [facility] Papanicolaou smear specimen (specimen) CERVIX UTERI STRUCTURE / Unknown 04/04/2021 9:30 EST 04/05/2021 12:08 EST Deyanira Taylor LIVE IN HOUSEKEEPER NANNY PATHOLOGY ORDERABLES [facility] [address] [place] [address] documented in this encounter Visit Diagnoses Diagnosis Encounter for other general examination documented in this encounter Care Teams Plastic Surgery Specialist Relationship Specialty Start Date End Date Radha Madrigal NP [address] [place] [phone] PCP - General 06/16/13 documented as of this encounter
--- OUTSIDE RECORDS SUMMARY | 2023-12-10 22:59 | XMS_ITS | Referral Summary ---
Author Organization [facility] Address [address] [place] [address] Care Team Providers Care Machine Gun Mechanic Name Role Phone Rahda Madrigal BODY WORKER Primary Care Provider [phone] Social History Tobacco Use Types Packs/Day Years Used Date Smoking Tobacco: Never Assessed Sex and Gender Information Value Date Recorded Sex Assigned at Not on file Gender Identity Not on file Sexual Orientation Not on file Plan of Treatment Not on file Care Teams Machine Gun Mechanic Relationship Specialty Start Date End Date Radha Madrigal NP [address] [place] [phone] PCP - General 06/16/13
--- OUTSIDE RECORDS SUMMARY | 2023-12-10 22:59 | XMS_ITS | Encounter Summary ---
Author Organization [facility] Address [address] [place] [address] Care Team Providers Care Digital Production Artist Name Role Phone Radha Madrigal RAILROAD CONSTRUCTION DIRECTOR Primary Care Provider [phone] Encounter Details Date Type Department Care Team (Late st Contact Info) Description 04/05/2020 Lab Requisition [facility] Pathology & Laboratory Medicine - [facility] [address] [place], [place] [id number] Outr Resulting Lab, Provider Social History Tobacco Use Types Packs/Day Years Used Date Smoking Tobacco: Never Assessed Sex and Gender Information Value Date Recorded Sex Assigned at Not on file Gender Identity Not on file Sexual Orientation Not on file documented as of this encounter Plan of Treatment Not on file documented as of this encounter Procedures Procedure Name Priority Date/Time Associated Diagnosis Comments DO NOT ORDER STANDALONE - BROAD COVID TEST Today 04/05/2020 14:30 EST COVID-19 TESTING Routine 04/05/2020 14:3 0 EST documented in this encounter Results * (ABNORMAL) DO NOT ORDER STANDALONE - BROAD COVID TEST (04/05/2020 14:30 EST) COVID-19 rt-PCR Result POSITIVE( AA) Negative 04/08/2020 7:18 EST [facility] Comment: Positive for detection of 2019-novel Coronavirus (2019-nCoV) by qRT-PCR. Limitations Positive results are indicative of active infection with SARS-CoV-2 but do not rule out bacterial infection or co-infection with other viruses. The agent detected may not be the definite cause of disease. In addition, detection of viral RNA may not indicate the presence of infectious virus or that SARS-CoV-2 is the causative agent for clinical symptoms. Negative results do not preclude SARS-CoV-2 infection and should not be used as the sole basis for patient management decisions. Negative results must be combined with clinical observations, patient history, and epidemiological information. False negative results may also occur if amplification inhibitors are present in the specimen or if inadequate numbers of organisms are present in the specimen. Optimum specimen types and timing for peak viral levels during infections caused by SARS-CoV-2 have not been fully determined. Collection of multiple specimens (types and time points) from the same patient may be necessary to detect the virus. The test was validated for use with upper respiratory specimens obtained via nasopharyngeal or oropharyngeal swabs in VTM, UTM, M4, M5, M6, saline, and MTM media. The performance of this test has not been established for other specimens. Specimens collected using other FDA recommended Specimen Collection Materials listed in the FDA COVID-19 Diagnostic [employer] communication (July 23, 2019) are processed with the caveat that they were not all validated for use with this test and the result must be interpreted in this context. Furthermore, a false negative results may occur if a specimen is improperly collected, transported or handled. If the virus mutates in the RT-PCR target region, SARS-CoV-2 may not be detected or may be detected less predictably. Inhibitors or other types of interference may produce a false negative result. An interference study evaluating the effect of common cold medications was not performed. This test is not FDA-cleared but its performance characteristics were established by our CLIA-certified, CAP-accredited, high complexity laboratory in accordance with CLIA regulations, College of [employer]ologists (CAP) guidelines (Jul 16, 2019), and FDA guidance (Jun 27, 2019). This test is only for use under the Food and Drug Administration's Emergency Use Authorization. Swab ENTIRE NASOPHARYNX / Unknown 04/05/2020 14:30 EST 04/05/2020 20:53 EST Provider Outr Resulting Lab MICROBIOLOGY - GENERAL ORDERABLES [place] * (ABNORMAL) COVID-19 TESTING (04/05/2020 14:30 EST) COVID-19 rt-PCR Result POSITIVE(AA) Negative 04/08/2020 10:03 [facility] Comment: Positive for detection of 2019-novel Coronavirus (2019-nCoV) by qRT-PCR. Limitations Positive results are indicative of active infection with SARS-CoV-2 but do not rule out bacterial infection or co-infection with other viruses. The agent detected may not be the definite cause of disease. In addition, detection of viral RNA may not indicate the presence of infectious virus or that SARS-CoV-2 is the causative agent for clinical symptoms. Negative results do not preclude SARS-CoV-2 infection and should not be used as the sole basis for patient management decisions. Negative results must be combined with clinical observations, patient history, and epidemiological information. False negative results may also occur if amplification inhibitors are present in the specimen or if inadequate numbers of organisms are present in the specimen. Optimum specimen types and timing for peak viral levels during infections caused by SARS-CoV-2 have not been fully determined. Collection of multiple specimens (types and time points) from the same patient may be necessary to detect the virus. The test was validated for use with upper respiratory specimens obtained via nasopharyngeal or oropharyngeal swabs in VTM, UTM, M4, M5, M6, saline, and MTM media. The performance of this test has not been established for other specimens. Specimens collected using other FDA recommended Specimen Collection Materials listed in the FDA COVID-19 [employer] communication (July 23, 2019) are processed with the caveat that they were not all validated for use with this test and the result must be interpreted in this context. Furthermore, a false negative results may occur if a specimen is improperly collected, transported or handled. If the virus mutates in the RT-PCR target region, SARS-CoV-2 may not be detected or may be detected less predictably. Inhibitors or other types of interference may produce a false negative result. An interference study evaluating the effect of common cold medications was not performed. This test is not FDA-cleared but its performance characteristics were established by our CLIA-certified, CAP-accredited, high complexity laboratory in accordance with CLIA regulations, College of [place] Pathologists (CAP) guidelines (Jul 16, 2019), and FDA guidance (Jun 27, 2019). This test is only for use under the Food and Drug Administration's Emergency Use Authorization. Performing Lab [facility] 04/08/2020 10:03 [facility] Swab 04/05/2020 14:3 0 EST 04/05/2020 20:53 EST Provider Outr Resulting Lab MICROBIOLOGY - GENERAL ORDERABLES [facility] [address] [place] [address] [facility] [place] documented in this encounter Visit Diagnoses Not on filedocumented in this encounter Additional Health Concerns Infection Onset Date Last Indicated Resolved Time COVID-19 04/05/2020 04/05/2020 05/05/2020 22:1 5 EST documented as of this encounter Care Teams Digital Production Artist Relationship Specialty Start Date End Date Radha Madrigal NP [address] [place] [phone] PCP - General 06/16/13 documented as of this encounter
--- OUTSIDE RECORDS SUMMARY | 2023-12-10 23:00 | XMS_ITS | Encounter Summary ---
Author Organization [facility] Address [address] [place] [address] Care Team Providers Care Seaming Inspector Name Role Phone Unavailable Primary Care Provider Unavailabl e Encounter Details Date Type Department Care Team (Late st Contact Info) Description 06/04/2013 Results Only [facility] Laboratory Services - [facility] ([facility]) [address] [place], [place] [phone] Deyanira Taylor, [facility] [address] [place] [phone] Social History Tobacco Use Types Packs/Day Years Used Date Smoking Tobacco: Never Assessed Sex and Gender Information Value Date Recorded Sex Assigned at Not on file Gender Identity Not on file Sexual Orientation Not on file documented as of this encounter Plan of Treatment Not on file documented as of this encounter Procedures Procedure Name Priority Date/Time Associated Diagnosis Comments PAP TEST- RESULT ONLY Routine 06/04/2013 0:00 EST documented in this encounter Results * PAP TEST- RESULT ONLY (06/04/2013 0:00 EST) Pathology Report: CYTOPATHOLOGY REPORT Reports generated via electronic interface contain original data; however they are lacking the format of the original report. Caution should be taken when reading/interpreti ng unformatted reports. Name: ? SEA LYNN ? Accession #: ? [id number] ? : ? 1985 (Age: 27) ??F ?Collect Date: ? 06/04/2013 ? Location: ? [facility] ? Receive Date: ? 06/05/2013 ? Provider: DEYANIRA TAYLOR INVESTIGATOR CLAIMS Copy to: MARSHALL AN SPECIAL LIBRARIAN ? Final Report SPECIMEN ADEQUACY ? Satisfactory for Evaluation - transformation zone component present GENERAL CATEGORIZATION ? Epithelial Cell Abnormality INTERPRETATION ? Squamous Cell Abnormality - Atypical squamous cells, undetermined significance (ASC-US). EDUCATIONAL NOTES/RECOMMENDATI ONS ? [facility] recommends following ASCCP's 2012 Updated Consensus Guidelines for the Management of Abnormal Cervical Cancer Screening Tests and Cancer Precursors (JLGTD, 2013; 17(5):S1-S27). ??Consensus guidelines are available online at www.asccp.org. Last Menstrual Period: 05/19/13 Specimen/Source: ??Pap Test, Cervix/Endocervix, ThinPrep Imaging System with manual evaluation Document reviewed and electronically signed by: ? MIHAELA BROWN MD ? Report ??Date: 06/12/2013 10:30 HPV with Pap Test ? Date Ordered: ? 06/11/2013 ? Status: ?? Signed Out ?Date Complete: ? 06/16/2013 ? By: ??System Interface ? Date Reported: ? 06/16/2013 ? Interpretation RESULT: Positive for high or intermediate risk HPV. E6 OR E7 mRNA from one or more types of HPV types 16,18,31, 33,35,39,45,51,52, 56,58,59,66, and 68 is detected by ginger farmer mediated amplification. High and intermediate risk HPV types are associated with most squamous intraepithelial lesions and cervical cancers. Comments Document reviewed and electronically signed by: ? System Interface ? Report date: 06/16/2013 By the signature above, the attending physician certifies that he/she has personally conducted a gross and/or microscopic examination of the described specimens and rendered or confirmed the above diagnosis. End of Report NOELLE PIMENTEL 06/04/2013 06/05/2013 Deyanira Taylor INVESTIGATOR CLAIMS PATHOLOGY ORDERABLES Performing Organization Address City/State/[facility] Co de Phone Number NOELLE PIMENTEL [address] [place] [address] documented in this encounter Visit Diagnoses Not on filedocumented in this encounter
--- OUTSIDE RECORDS SUMMARY | 2023-12-10 23:00 | XMS_ITS | Encounter Summary ---
Author Organization [facility] Address [address] [place] [address] Care Team Providers Care Land Use Planner Name Role Phone Unavailable Primary Care Provider Unavailabl e Encounter Details Date Type Department Care Team (Late st Contact Info) Description 10/25/2008 Orders Only [facility] Laboratory Services - [facility] ([facility]) [address] [place] [address] Tri Hartley, RACHAEL Social History Tobacco Use Types Packs/Day Years Used Date Smoking Tobacco: Never Assessed Sex and Gender Information Value Date Recorded Sex Assigned at Not on file Gender Identity Not on file Sexual Orientation Not on file documented as of this encounter Plan of Treatment Not on file documented as of this encounter Procedures Procedure Name Priority Date/Time Associated Diagnosis Comments CYTOPATHOLOGY Routine 10/25/2008 0:00 EDT documented in this encounter Results * CYTOPATHOLOGY (10/25/2008 0:00 EDT) Pathology Report: CYTOPATHOLOGY REPORT ? Reports generated via electronic interface contain original data; ? however they are lacking the format of the original report. ? Caution should be taken when reading/interpreti ng unformatted reports. ? Name: ? SEA LYNN ? Accession #: ? [id number] ? : ? 1985 (Age: 23) ??F ?Collect Date: ? 10/25/2008 ? Location: ? [facility] ? Receive Date: ? 10/26/2008 ? Provider: ?TRI M HUNTER BACK TENDER FOURDRINIER ? Copy to: ? Specimen/Source: ?Pap Test, Cervix/Endocervix, ThinPrep Imaging System ? with manual evaluation ? Last Menstrual Period: ? 6/1/09 ? Hormonal/Contracep tive Status: ? Yes: nuvaring ? Other: ? HPVA - HPV testing requested if ASC-US on the current ThinPrep Pap test. ? SPECIMEN ADEQUACY ? Satisfactory for Evaluation ? - transformation zone component present ? GENERAL CATEGORIZATION ? Negative for Intraepithelial Lesion or Malignancy ? INTERPRETATION ? Fungal organisms present morphologically consistent with Adina species. ? Document reviewed and electronically signed by: ? Angelo Stumler, CT(ASCP) ? Report Date: ??11/02/2008 08:36 ? End of Report ? NOELLE PIMENTEL 10/25/2008 10/26/2008 Tri Hartley BACK TENDER FOURDRINIER PATHOLOGY ORDERABLES [facility] [address] [place] [address] documented in this encounter Visit Diagnoses Not on filedocumented in this encounter
--- OUTSIDE RECORDS SUMMARY | 2023-12-10 23:00 | XMS_ITS | Encounter Summary ---
Author Organization [facility] Address [address] [place] [address] Care Team Providers Care Airplane Refueler Name Role Phone Radha Madrigal WHARF LABORER Primary Care Provider [phone] Encounter Details Date Type Department Care Team (Late st Contact Info) Description 11/01/2016 Results Only [facility] [phone] Beth Mazariegos CNM [address] [facility] [address] [place], [place] [phone] Social History Tobacco Use Types Packs/Day Years [...] Diagnosis Comments PAP TEST- RESULT ONLY Routine 11/01/2016 0:00 EDT documented in this encounter Results * PAP TEST- RESULT ONLY (11/01/2016 0:00 EDT) Pathology Report: CYTOPATHOLOGY REPORT Reports generated via electronic interface contain original data; however they are lacking the format of the original report. Caution should be taken when reading/interpret ing unformatted reports. Name: ? SEA LYNN ? Accession #: ? [id number] ? : ? 1985 (Age: 31) ??F ?Collect Date: ? 11/01/2016 ? Location: ? [facility] ? Receive Date: ? 11/02/2016 ? Provider: BETH MAZARIEGOS CNM Copy to: TALITA CASTILLO ENERGY EFFICIENCY ENGINEER ? Final Report SPECIMEN ADEQUACY ? Satisfactory for Evaluation - transformation zone component present GENERAL CATEGORIZATION ? Epithelial Cell Abnormality INTERPRETATION ? Squamous Cell Abnormality - Atypical squamous cells, undetermined significance (ASC-US). EDUCATIONAL NOTES/RECOMMENDAT IONS ? [facility] recommends following ASCCP's 2012 Updated Consensus Guidelines for the Management of Abnormal Cervical Cancer Screening Tests and Cancer Precursors (JLGTD, 2013; 17(5):S1-S27). ??Consensus guidelines are available online at www.asccp.org. Last Menstrual Period: 08/08/2016 Menstrual/Pregnan cy Status: ?? Previous Gynecologic Pathology: ASC-US: 06/04/2013 HPV: + 06/04/2013 Treatment History: ECC: 06/23/2013;scant benign endoc cx glands & sq. epith.cells Infection History: Neg for HPV: 06/27/2015 Other: Additional clinical information: pap negative 06/27/2015 Specimen/Source: ??Pap Test, Cervix, ThinPrep Imaging System with manual evaluation Document reviewed and electronically signed by: ? TRACE SANCHEZ MD ? Report ??Date: 11/13/2016 13:12 HPV with Pap Test ? Date Ordered: ? 11/13/2016 ? Status: ?? Signed Out ?Date Complete: ? 11/14/2016 ? By: ??System Interface ? Date Reported: ? 11/14/2016 ? Interpretation RESULT: Negative for HPV. No E6 or E7 mRNA is detected from HPV types 16,18,31,33,35, 39,45,51,52,56,58 ,59,66, and 68 by specification manager mediated amplification. Comments Document reviewed and electronically signed by: ? System Interface ? Report date: 11/14/2016 By the signature above, the attending physician certifies that he/she has personally conducted a gross and/or microscopic examination of the described specimens and rendered or confirmed the above diagnosis. End of Report [facility] 11/01/2016 11/02/2016 Beth Mazariegos [facility] PATHOLOGY ORDERABLES [facility] [address] [place] [address] documented in this encounter Visit Diagnoses Not on filedocumented in this encounter Care Teams Airplane Refueler Relationship Specialty Start Date End Date Radha Madrigal NP [address] [place] [phone] PCP - General 06/16/13 documented as of this encounter
--- OUTSIDE RECORDS SUMMARY | 2023-12-10 23:00 | XMS_ITS | Encounter Summary ---
Author Organization [facility] Address [address] [place] [address] Care Team Providers Care Assessment Specialist Name Role Phone Marshall An SOLOIST DANCER Primary Care Provider [phone] Encounter Details Date Type Department Care Team (Late st Contact Info) Description 06/27/2015 Results Only [facility] [phone] Beth Mazariegos CNM [facility] [address] [place], [place] [phone] Social History Tobacco Use Types Packs/Day Years [...] Diagnosis Comments PAP TEST- RESULT ONLY Routine 06/27/2015 0:00 EST documented in this encounter Results * PAP TEST- RESULT ONLY (06/27/2015 0:00 EST) Pathology Report: CYTOPATHOLOGY REPORT Reports generated via electronic interface contain original data; however they are lacking the format of the original report. Caution should be taken when reading/interpreti ng unformatted reports. Name: ? SEA LYNN ? Accession #: ? [id number] ? : ? 1985 (Age: 29) ??F ?Collect Date: ? 06/27/2015 ? Location: ? [facility] ? Receive Date: ? 06/30/2015 ? Provider: BETH MAZARIEGOS [facility] Copy to: MARSHALL AN SOLOIST DANCER ? Final Report SPECIMEN ADEQUACY ? Satisfactory for Evaluation - transformation zone component present GENERAL CATEGORIZATION ? Negative for Intraepithelial Lesion or Malignancy INTERPRETATION ? Fungal organisms present morphologically consistent with Adina species. Last Menstrual Period: 03/09/15 Menstrual/Pregnanc y Status: ?? Previous Gynecologic Pathology: ASC-US: 06/04/2013 HPV: + Specimen/Source: ??Pap Test, Cervix, ThinPrep Imaging System with manual evaluation Document reviewed and electronically signed by: ? dArienne Dickson, STEPHEN(ASCP)(IAC) ? Report ??Date: 07/05/2015 14:37 HPV with Pap Test ? Date Ordered: ? 07/05/2015 ? Status: ?? Signed Out ?Date Complete: ? 07/06/2015 ? By: ??System Interface ? Date Reported: ? 07/06/2015 ? Interpretation RESULT: Negative for HPV. No E6 or E7 mRNA is detected from HPV types 16,18,31,33,35, 39,45,51,52,56,58, 59,66, and 68 by rolled ham lacer mediated amplification. Comments Document reviewed and electronically signed by: ? System Interface ? Report date: 07/06/2015 By the signature above, the attending physician certifies that he/she has personally conducted a gross and/or microscopic examination of the described specimens and rendered or confirmed the above diagnosis. End of Report [facility] 06/27/2015 06/30/2015 Beth Mazariegos [facility] PATHOLOGY ORDERABLES [facility] [address] [place] [address] documented in this encounter Visit Diagnoses Not on filedocumented in this encounter Care Teams Assessment Specialist Relationship Specialty Start Date End Date Marshall An NP [address] [place] [phone] PCP - General 06/16/13 documented as of this encounter
--- OUTSIDE RECORDS SUMMARY | 2023-12-10 23:00 | XMS_ITS | Clinical Summary ---
Author Organization [facility] Address [facility] [place] [address] Care Team Providers Care Film Recordist Name Role Phone Maxine Cabrera APRN Primary Care Provider [phone] Allergies Active Allergy Reactions Criticality Noted Date Comments Amoxicillin Hives 07/09/2019 Medications Medication Sig Dispensed Refills Start Date End Date Status predniSONE (Deltasone) 20 mg Tablet 06/16/2019 Active sertraline (Zoloft) 25 mg Tablet TK 1 T PO D 06/19/2019 Active triamcinolone (KENALOG) 0.1 % Cream ALEJANDRINA EXT AA BID 06/19/2019 Active dexAMETHasone 0.1 mg/mL ElixirIndications:Aphth ous ulcer of mouth Take 5 mLs by mouth 4 times daily. 100 mL 06/25/2019 Active Social History Tobacco Use Types Packs/Day Years Used Date Smoking Tobacco: Never Smokeless Tobacco: Never Sex and Gender Information Value Date Recorded Sex Assigned at Not on file Gender Identity Not on file Sexual Orientation Not on file Last Filed Vital Signs Vital Sign Reading Time Taken Comments Blood Pressure 115/71 06/25/2019 10:14 AM EST Pulse 79 06/25/2019 10:14 AM EST Temperature - - Respiratory Rate - - Oxygen Saturation 99% 06/25/2019 10:14 AM EST Inhaled Oxygen Concentration - - Weight 74.8 kg (165 lb) 06/25/2019 10:14 AM EST Height 165.1 cm (5' 5) 06/25/2019 10:14 AM EST Body Mass Index 27.46 06/25/2019 10:14 AM EST Plan of Treatment Health Maintenance Due Date Last Done Comments HIV screen 2004 Hepatitis C Screening 2004 Hepatitis B vaccine (0-59 yrs) (1) 2005 Tdap adult 2005 Tetanus vaccine 2005 HPV test 2016 PAP Smear 2016 Covid-19 Vaccine ( - 2022-24 season) 2022 Influenza (Flu) vaccine (1 o f 1 - Influenza standard series) 12/29/2023 Care Teams Film Recordist Relationship Specialty Start Date End Date Maxine Cabrera APRN [address] [place], [place] [id number] PCP - General Family Medicine 06/22/19
--- OUTSIDE RECORDS SUMMARY | 2023-12-10 23:00 | XMS_ITS | Encounter Summary ---
Author Organization [facility] Address [address] [place] [address] Care Team Providers Care Coal Screener Name Role Phone Unavailable Primary Care Provider Unavailabl e Encounter Details Date Type Department Care Team (Late st Contact Info) Description 12/13/2003 Results Only [facility] [address] [place] [address] Riya Becerra MD [address] [facility] [place] [address] Social History Tobacco Use Types Packs/Day Years Used Date Smoking Tobacco: Never Assessed Sex and Gender Information Value Date Recorded Sex Assigned at Not on file Gender Identity Not on file Sexual Orientation Not on file documented as of this encounter Plan of Treatment Not on file documented as of this encounter Procedures Procedure Name Priority Date/Time Associated Diagnosis Comments SURGICAL PATHOLOGY Routine 12/13/2003 0:00 EDT documented in this encounter Results * SURGICAL PATHOLOGY (12/13/2003 0:00 EDT) Pathology Report: SURGICAL PATHOLOGY REPORT Reports generated via electronic interface contain original data; however they are lacking the format of the original report. Caution should be taken when reading/interpreti ng unformatted reports. Name: ? SEA LYNN ? Accession #: ? [id number] ? : ? 1985 (Age: 18) ??F ? Collect Date: ? 12/13/2003 ? Location: ? [facility] ? Receive Date: ? 12/13/2003 ? Provider: RIYA BECERRA MD Copy to: ALICIA FLORES MD ? Final Pathologic Diagnosis: A. ?Tonsil, right, tonsillectomy: 1. ?Reactive follicular lymphoid hyperplasia. B. ?Tonsil, left, tonsillectomy: 1. ?Reactive follicular lymphoid hyperplasia. 2. ?Fragment of benign salivary gland. Document reviewed and electronically signed by: LETICIA EDWARD MD Report ??Date: 12/14/2003 15:56 By the signature above, the attending physician certifies that he/she has personally conducted a gross and/or microscopic examination of the described specimens and rendered or confirmed the above diagnosis. Specimen(s) Received: A. ?Tonsil, right (#1) B. ?Tonsil, left (#2) Clinical History: ? Chronic tonsillitis Gross Description: ? Received in formalin labelled Lynn and right tonsil is a hitchcock-pink, ovoid, unoriented 3.0 x 2.2 x 1.5 cm soft tissue surfaced by a hitchcock, smooth to wrinkled mucosa. ??Upon sectioning, the cut surfaces are hitchcock-pink with a crypt-like architecture. ??No discrete nodules identified. ??A customer success representative section is submitted as (A). Received in formalin labelled Lynn and left tonsil is a hitchcock-pink, ovoid, unoriented soft tissue measuring 2.5 x 2.5 x 1.5 cm and is surfaced by a hitchcock, smooth to wrinkled mucosa. ??Upon sectioning, the cut surfaces are hitchcock-pink and homogeneous. ??No discrete nodules identified. ??A customer success representative section is submitted as (B). ??(Kati Cai/[facility] End of Report [facility] 12/13/2003 12/13/2003 15: 14 EDT Riya Becerra MD PATHOLOGY ORDERABLES Performing Organization Address City/State/[facility] Co de Phone Number [facility] [address] [place] [address] documented in this encounter Visit Diagnoses Not on filedocumented in this encounter
--- OUTSIDE RECORDS SUMMARY | 2023-12-10 23:00 | XMS_ITS | Encounter Summary ---
Author Organization [facility] Address [address] [place] [address] Care Team Providers Care Organic Preparation Technician Name Role Phone Radha Madrigal INTERNAL MEDICINE PHYSICIAN Primary Care Provider [phone] Encounter Details Date Type Department Care Team (Latest Contact Info) Description 11/01/2016 16:14 EDT - 11/01/2016 23:59 EDT Hospital Encounter [address] [address] Unknown, Provider, Discharge Disposition: Home or Self Care Social History Tobacco Use Types Packs/Day Years Used Date Smoking Tobacco: Never Assessed Sex and Gender Information Value Date Recorded Sex Assigned at Not on file Gender Identity Not on file Sexual Orientation Not on file documented as of this encounter Discharge Disposition Disposition Code Departure Means Destination Home or Self [facility] documented in this encounter Plan of Treatment Not on file documented as of this encounter Visit Diagnoses Not on filedocumented in this encounter Care Teams Organic Preparation Technician Relationship Specialty Start Date End Date Radha Madrigal NP [address] [place] [phone] PCP - General 06/16/13 documented as of this encounter
--- OUTSIDE RECORDS SUMMARY | 2023-12-10 23:00 | XMS_ITS | Encounter Summary ---
Author Organization [facility] [place] [address] Care Team Providers Care Experience Specialist Name Role Phone Maxine Cabrera APRN Primary Care Provider [phone] Reason for Visit * Reason Comments Establish Care * Consultation (Routine) - Specialty Diagnoses / Procedures Referred By Sanju miller Referred To Contact Allergy Diagnoses Allergy to other foods Recurrent oral aphthae Allergy to other foods; Recurrent oral aphthae Maxine Cabrera APRN [address] [place] [address] [facility] [address] [place] [phone] Referral ID Status Reason Start Date Expiration Date V isits Requested Visits Authorized [id number] Consult, [facility] PCP Updated and/or Approved 06/19/2019 09/17/2019 6 6 Encounter Details Date Type Department Care Team (Late st Contact Info) Description 06/25/2019 10:30 AM EST [place] [phone] Lydia Blanchard MD [facility] [place] [address] Aphthous ulcer of mouth; Adverse food reaction, initial encounter; Recurrent infections; Drug-induced urticaria Social History Tobacco Use Types Packs/Day Years Used Date Smoking Tobacco: Never Smokeless Tobacco: Never Sex and Gender Information Value Date Recorded Sex Assigned at Not on file Gender Identity Not on file Sexual Orientation Not on file documented as of this encounter Last Filed Vital Signs Vital Sign Reading [...] Mass Index 27.46 06/25/2019 10:14 AM EST documented in this encounter Progress Notes * Lydia Blanchard MD - 06/25/2019 10:30 AM EST Images from the original note were not included. [facility] Section of Allergy and Clinical Immunology Primary Care Provider: Maxine Cabrera APRN Patient Age: 33 y.o. 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 She reports that she tried being on a gluten-free diet and felt like her canker sores in her eczema in 2016 improved. When she was on a gluten-free diet she went 1 or 2 months without any canker sores. Her worst year was in 2014. She thought that almond milk also triggered canker sores. She had been gluten-free and dairy free and then had started drinking almond milk again. She reports that she was allergic to milk as a baby. She was adopted so she does not know any family history. She reports that she would drink a couple ounces of milk and have abdominal pain andswitch to soy. She was 15 months old before she was able to switch back to drinking milk again. Shehad terrible eczema as a baby and her mother is with her today and her adopted mother is here with her today. Her eczema has been worse as an adult. In April she went to [place] and ate gluten every day for 4 days which did not bother her stomach, but her skin got worse and when she stopped the gluten it cleared up. On 's Day, she ate a donut and some pizza that was not gluten-free, the next day on Saturday she had a similar rash and appeared on both sides of her arms. She used triamcinolone cream and Advanced hydration body lotion by [facility]. On Saturday she went to the emergency room leave left work due to her throat feeling weird. She felt like there was a softball in her throat she went to [facility] and received 6 days of oral steroids. She uses [employer] toothpaste. When she tried [employer] toothpaste, she reports having more canker sores. No past surgical history on file. Outpatient Medications Marked as Taking for the 06/25/19 encounter (Office Visit) with Lydia Blanchard MD Medication Sig Dispense Refill ??? sertraline (Zoloft) 25 mg Tablet TK 1 T PO D ??? triamcinolone (KENALOG) 0.1 % Cream ALEJANDRINA EXT AA BID Allergies Allergen Reactions ??? Amoxicillin Hives Age 2-3, hives to amoxicillin and erythromycin. Sulfa - age 19. She developed lip angioedema after 2-3 doses. Other allergies listed on [facility]: codeine, ilosone, penicillin, cephalosporin, azithromycinand colgate toothpaste. Family History: not known as she is adopted. Social History Tobacco Use ??? Smoking status: Never Smoker ??? Smokeless tobacco: Never Used Substance Use Topics ??? Alcohol use: Not on file ??? Drug use: Not on file Status: Single. Review of Systems Constitutional: Negative. HENT: Sores in mouth Eyes: Negative. Respiratory: Negative. Cardiovascular: Negative. Gastrointestinal: Negative. Endocrine: Negative. Genitourinary: Negative. Musculoskeletal: Negative. Skin: eczema Neurological: Negative. Hematological: Negative. Psychiatric/Behavioral: The patient is nervous/anxious. Environmental History: Pets in the home: cats (1). Climate Control: forced hot air heat Tobacco Smoke in Home: no Objective: BP 115/71 Pulse 79 Ht 165.1 cm (5' 5) Wt 74.8 kg (165 lb) SpO2 99% BMI 27.46 kg/m?? No flowsheet data found. Wt Readings from Last 3 Encounters: 06/25/19 74.8 kg (165 lb) Physical Exam Vitals signs reviewed. Constitutional: Appearance: Normal appearance. HENT: Head: Normocephalic and atraumatic. Nose: Nose normal. Mouth/Throat: Mouth: Mucous membranes are moist. Pharynx: Oropharynx is clear. Eyes: Extraocular Movements: Extraocular movements intact. Pupils: Pupils are equal, round, and reactive to light. Neck: Musculoskeletal: Normal range of motion and neck supple. No muscular tenderness. Cardiovascular: Rate and Rhythm: Normal rate and regular rhythm. Pulses: Normal pulses. Heart sounds: Normal heart sounds. Pulmonary: Effort: Pulmonary effort is normal. Breath sounds: Normal breath sounds. Abdominal: General: Bowel sounds are normal. There is no distension. Palpations: Abdomen is soft. Musculoskeletal: Normal range of motion. Skin: General: Skin is warm and dry. Findings: No rash. Neurological: General: No focal deficit present. Mental Status: She is alert. 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 She is concerned about immunodeficiency. I have ordered quantitativeimmunoglobulins. For the aphthous ulcers, I have recommended using dexamethasone solution as soon as she has an ulcer. A teaspoon of solution should be rinsed for 5 minutes and then spat out, and sheshould not eat or drink for 15 minutes afterwards. She has requested skin testing to almond, wheat and milk. Orders placed. For history of a remote amoxicillin allergy, I recommend she return for skin testing. If skin tests are negative to penicillinand ampicillin, consider an oral ingestion challenge. All questions were answered, and the patient expressed understanding of the plan. Thank you for the opportunity to participate in the care of your patient. Ongoing follow-up with the patient's primary care physician is recommended and encouraged. If I can provide any further assistance, please do not hesitate to contact me. Next visit (studies planned): penicillin/ampicillin skin testing, food skin prick testing. Lydia Tarango MD Bag Presser, Allergy and Clinical Immun[place] [address] [email or web address] documented in this encounter Plan of Treatment Not on file documented as of this encounter Visit Diagnoses Diagnosis Aphthous ulcer of mouth Oral aphthae Adverse food reaction, initial encounter Recurrent infections Unspecified infectious and parasitic diseases Drug-induced urticaria Allergic urticaria documented in this encounter Care Teams Experience Specialist Relationship Specialty Start Date End Date Maxine Cabrera, BAG MACHINE HELPER [address] [place] [address] PCP - General Family Medicine 06/22/19 documented as of this encounter
--- OUTSIDE RECORDS SUMMARY | 2023-12-10 23:00 | XMS_ITS | Encounter Summary ---
Author Organization [facility] Address [address] [place] [address] Care Team Providers Care Boat Diesel Motor Mechanic Name Role Phone Unavailable Primary Care Provider Unavailabl e Encounter Details Date Type Department Care Team (Late st Contact Info) Description 10/12/2002 Results Only [facility] [address] [place] [address] Beth Mazariegos [address] [place], [place] [phone] Social History Tobacco Use Types Packs/Day Years Used Date Smoking Tobacco: Never Assessed Sex and Gender Information Value Date Recorded Sex Assigned at Not on file Gender Identity Not on file Sexual Orientation Not on file documented as of this encounter Plan of Treatment Not on file documented as of this encounter Procedures Procedure Name Priority Date/Time Associated Diagnosis Comments CYTOPATHOLOGY Routine 10/12/2002 0:00 EDT documented in this encounter Results * CYTOPATHOLOGY (10/12/2002 0:00 EDT) Pathology Report: CYTOPATHOLOGY REPORT Reports generated via electronic interface contain original data; however they are lacking the format of the original report. Caution should be taken when reading/interpreti ng unformatted reports. Name: ? SEA LYNN ? Accession #: ? [id number] : ? 1985 (Age: 17) ??F ?Collect Date: ? 10/12/2002 Location: ? [facility] ? Receive Date: ? 10/14/2002 Provider: ?BETH MAZARIEGOS CNM Copy to: ? Specimen/Source: ?ThinPrep Pap Test, Cervix/Endocervix Last Menstrual Period: ? 09/25/02 ? SPECIMEN ADEQUACY ? Satisfactory for Evaluation - transformation zone component present GENERAL CATEGORIZATION ? Negative for Intraepithelial Lesion or Malignancy INTERPRETATION ? Fungal organisms present morphologically consistent with Adina species. ? Document reviewed and electronically signed by: ? Rosi Grullon [facility](ASCP) ? Report Date: ??10/19/2002 10:16 End of Report [facility] 10/12/2002 10/14/2002 Beth Mazariegos CNM PATHOLOGY ORDERABLES [facility] [address] [place] [address] documented in this encounter Visit Diagnoses Not on filedocumented in this encounter
--- OUTSIDE RECORDS SUMMARY | 2023-12-10 23:00 | XMS_ITS | Encounter Summary ---
Author Organization [facility] Address [address] [place] [address] Care Team Providers Care Roller Pneumatic Name Role Phone Marshall An DATABASE ARCHITECT Primary Care Provider [phone] Encounter Details Date Type Department Care Team (Late st Contact Info) Description 12/16/2014 Results Only [facility] [phone] Anibal Nicholson MD [address] [facility] [address] [place] [address] Social History Tobacco Use Types Packs/Day Years Used Date Smoking Tobacco: Never Assessed Sex and Gender Information Value Date Recorded Sex Assigned at Not on file Gender Identity Not on file Sexual Orientation Not on file documented as of this encounter Plan of Treatment Not on file documented as of this encounter Procedures Procedure Name Priority Date/Time Associated Diagnosis Comments SURGICAL PATHOLOGY Routine 12/16/2014 18 :08 EDT documented in this encounter Results * SURGICAL PATHOLOGY (12/16/2014 18:08 EDT) Pathology Report: SURGICAL PATHOLOGY REPORT Reports generated via electronic interface contain original data; however they are lacking the format of the original report. Caution should be taken when reading/interpret ing unformatted reports. Name: ? SEA DUGGAN ? Accession #: ? [id number] ? : ? 1985 (Age: 29) ??F ? Collect Date: ? 12/16/2014 ? Location: ? [facility] ? Receive Date: ? 12/17/2014 ? Provider: QUENTIN NICHOLSON MD Copy to: MARSHALL AN DATABASE ARCHITECT ? Final Pathologic Diagnosis: A. DUODENUM, 2ND PORTION, BIOPSY: - ??Small bowel mucosa with no specific pathologic features. B. STOMACH, ANTRUM AND BODY, BIOPSY: - ??Gastric body mucosa with no specific pathologic features. C. SMALL BOWEL, TERMINAL ILEUM, BIOPSY: - ??Small bowel mucosa with no specific pathologic features. D. COLON, ASCENDING, BIOPSY: - ??Colonic mucosa with no specific pathologic features. E. ??COLON, DESCENDING, BIOPSY: - ??Colonic mucosa with no specific pathologic features. F. ??COLON, SIGMOID, BIOPSY: - ??Colonic mucosa with no specific pathologic features. G. RECTUM, BIOPSY: - ??Colorectal mucosa with no specific pathologic features. ?? Document reviewed and electronically signed by: KOBE PLEITEZ MD Report ??Date: 12/22/2014 17:00 By the signature above, the attending physician certifies that he/she has personally conducted a gross and/or microscopic examination of the described specimens and rendered or confirmed the above diagnosis. Specimen(s) Received: A. ?Second portion duodenum bx B. ? Antrum + body bx C. ? Terminal ileum bx D. ? Ascending colon bx E. ? Descending colon bx F. ? Sigmoid colon bx G. ? Rectal bx Clinical History: Sores in mouth, ? IBD; clinical diagnosis code: 528.2 Gross Description: A. ?Received in formalin labelled with proper patient identification (initials P, E) and A. 2nd portion duodenum bx are two light hitchcock tissues (0.4 x 0.2 x 0.2 cm and 0.3 x 0.2 x 0.1 cm). Entirely submitted in A1. B. ?Received in formalin labelled with proper patient identification (initials P, E) and B. antrum + body bx is a single light hitchcock tissue fragment (0.8 x 0.2 x 0.1 cm). Submitted intact in B1. C. ?Received in formalin labelled with proper patient identification (initials P, E) and C. terminal ileum bx are three light hitchcock tissues (0.4 x 0.2 x 0.1 cm, 0.3 x 0.1 x 0.1 cm and 0.2 x 0.1 x 0.1 cm). Entirely submitted in C1. D. ?Received in formalin labelled with proper patient identification (initials P, E) and D. ascending colon bx are two light hitchcock tissues (0.5 x 0.2 x 0.1 cm and ??0.4 x 0.2 x 0.1 cm). Entirely submitted in D1. E. ?Received in formalin labelled with proper patient identification (initials P, E) and E. descending colon bx are two light hitchcock tissues (0.4 x 0.2 x 0.1 cm and 0.3 x 0.2 x 0.1 cm). Entirely submitted in E1. F. ?Received in formalin labelled with proper patient identification (initials P, E) and F. sigmoid colon bx are two hitchcock-white tissues (0.5 x 0.3 x 0.1 cm and 0.3 x 0.2 x 0.1 cm). Entirely submitted in F1. G. ?Received in formalin labelled with proper patient identification (initials P, E) and G. rectal bx is a single hitchcock-white tissue fragment (0.5 x 0.2 x 0.2 cm). Submitted intact in G1. Carmine Garcia 12/20/2014 10:43 AM End of Report [facility] 12/16/2014 18:0 8 EDT 12/17/2014 18:08 EDT Anibal Nicholson MD PATHOLOGY ORDERABLES [facility] [address] [place] [address] documented in this encounter Visit Diagnoses Not on filedocumented in this encounter Care Teams Roller Pneumatic Relationship Specialty Start Date End Date Marshall An NP [address] [place], [place] [phone] PCP - General 06/16/13 documented as of this encounter
--- OUTSIDE RECORDS SUMMARY | 2023-12-10 23:00 | XMS_ITS | Encounter Summary ---
Author Organization [facility] Address [address] [place] [address] Care Team Providers Care Tandem Mill Roller Name Role Phone Radha Madrigal PAPERBOARD BOX MAKER Primary Care Provider [phone] Encounter Details Date Type Department Care Team (Latest Contact Info) Description 06/23/2013 16:53 EST - 06/23/2013 23:59 EST Hospital Encounter [address] [address] Unknown, Provider, Discharge Disposition: Home or Self Care Social History Tobacco Use Types Packs/Day Years Used Date Smoking Tobacco: Never Assessed Sex and Gender Information Value Date Recorded Sex Assigned at Not on file Gender Identity Not on file Sexual Orientation Not on file documented as of this encounter Discharge Disposition Disposition Code Departure Means Destination Home or Self Usp documented in this encounter Plan of Treatment Not on file documented as of this encounter Visit Diagnoses Not on filedocumented in this encounter Care Teams Tandem Mill Roller Relationship Specialty Start Date End Date Radha Madrigal NP [address] [place] [phone] PCP - General 06/16/13 documented as of this encounter
--- OUTSIDE RECORDS SUMMARY | 2023-12-10 23:00 | XMS_ITS | Encounter Summary ---
Author Organization [facility] Address [address] [place] [address] Care Team Providers Care Editor Map Name Role Phone Unavailable Primary Care Provider Unavailabl e Encounter Details Date Type Department Care Team (Late st Contact Info) Description 06/28/2009 Results Only [facility] Laboratory Services - [facility] ([facility]) [address] [place] [address] Pino Medina ARNP [address] [place] [address] Social History Tobacco Use Types Packs/Day Years Used Date Smoking Tobacco: Never Assessed Sex and Gender Information Value Date Recorded Sex Assigned at Not on file Gender Identity Not on file Sexual Orientation Not on file documented as of this encounter Plan of Treatment Not on file documented as of this encounter Procedures Procedure Name Priority Date/Time Associated Diagnosis Comments CYTOPATHOLOGY Routine 06/28/2009 0:00 EST documented in this encounter Results * CYTOPATHOLOGY (06/28/2009 0:00 EST) Pathology Report: CYTOPATHOLOGY REPORT ? Reports generated via electronic interface contain original data; ? however they are lacking the format of the original report. ? Caution should be taken when reading/interpreti ng unformatted reports. ? Name: ? SEA LYNN ? Accession #: ? [id number] ? : ? 1985 (Age: 23) ??F ?Collect Date: ? 06/28/2009 ? Location: ? [facility] ? Receive Date: ? 06/30/2009 ? Provider: ?PINO NAVAS ? Copy to: ? Specimen/Source: ?Pap Test, Cervix/Endocervix, ThinPrep Imaging System ? with manual evaluation ? Last Menstrual Period: ? 128/23/09 ? Menstrual/Pregnanc y Status: ? Other: ? HPVA - HPV testing requested if ASC-US on the current ThinPrep Pap test. ? SPECIMEN ADEQUACY ? Satisfactory for Evaluation ? - transformation zone component present ? GENERAL CATEGORIZATION ? Negative for Intraepithelial Lesion or Malignancy ? Document reviewed and electronically signed by: ? Lynan Reginald, CT(ASCP) ? Report Date: ??07/01/2009 10:38 ? End of Report ? NOELLE PIMENTEL 06/28/2009 06/30/2009 Pino NAVAS PATHOLOGY ORDERAB LES [facility] [address] [place] [address] documented in this encounter Visit Diagnoses Not on filedocumented in this encounter
--- OUTSIDE RECORDS SUMMARY | 2023-12-10 23:00 | XMS_ITS | Encounter Summary ---
Author Organization [facility] Address [address] [place] [address] Care Team Providers Care Hot Repairman Name Role Phone Unavailable Primary Care Provider Unavailabl e Encounter Details Date Type Department Care Team (Late st Contact Info) Description 04/17/2005 Results Only [facility] [place] conversion [address] [place] [address] Deyanira Taylor, [facility] [address] [place] [address] Social History Tobacco Use Types Packs/Day Years Used Date Smoking Tobacco: Never Assessed Sex and Gender Information Value Date Recorded Sex Assigned at Not on file Gender Identity Not on file Sexual Orientation Not on file documented as of this encounter Plan of Treatment Not on file documented as of this encounter Procedures Procedure Name Priority Date/Time Associated Diagnosis Comments CYTOPATHOLOGY Routine 04/17/2005 0:00 EST documented in this encounter Results * CYTOPATHOLOGY (04/17/2005 0:00 EST) Pathology Report: CYTOPATHOLOGY REPORT Reports generated via electronic interface contain original data; however they are lacking the format of the original report. Caution should be taken when reading/interpreti ng unformatted reports. Name: ? SEA LYNN ? Accession #: ? [id number] : ? 1985 (Age: 19) ??F ?Collect Date: ? 04/17/2005 Location: ? [facility] ? Receive Date: ? 04/18/2005 Provider: ?DEYANIRA TAYLOR TANK FARM OPERATOR Copy to: ? Specimen/Source: ?ThinPrep Pap Test, Cervix/Endocervix, processed on [employer] ThinPrep Imaging System, with manual evaluation Last Menstrual Period: ? 03/22/05 Other: ? HPVA - HPV testing requested if ASC-US on the current ThinPrep Pap test. ? SPECIMEN ADEQUACY ? Satisfactory for Evaluation - transformation zone component present GENERAL CATEGORIZATION ? Negative for Intraepithelial Lesion or Malignancy ? Document reviewed and electronically signed by: ? STEPHEN Chavis(ASCP) ? Report Date: ??04/19/2005 09:52 End of Report NOELLE PIMENTEL 04/17/2005 04/18/2005 Deyanira Taylor TANK FARM OPERATOR PATHOLOGY ORDERABLES [facility] [address] [place] [address] documented in this encounter Visit Diagnoses Not on filedocumented in this encounter
--- OUTSIDE RECORDS SUMMARY | 2023-12-10 23:00 | XMS_ITS | Encounter Summary ---
Author Organization [facility] Address [address] [place] [address] Care Team Providers Care Shipwright Helper Name Role Phone Radha Madrigal EXECUTIVE VP Primary Care Provider Encounter Details Date Type Department Care Team (Latest Contact Info) Description 12/16/2014 7:05 EDT - 12/16/2014 23:59 EDT Hospital Encounter [address] [address] Unknown, Provider, Discharge Disposition: Home or Self Care Social History Tobacco Use Types Packs/Day Years Used Date Smoking Tobacco: Never Assessed Sex and Gender Information Value Date Recorded Sex Assigned at Not on file Gender Identity Not on file Sexual Orientation Not on file documented as of this encounter Discharge Disposition Disposition Code Departure Means Destination Home or Self Mcfp documented in this encounter Plan of Treatment Not on file documented as of this encounter Visit Diagnoses Not on filedocumented in this encounter Care Teams Shipwright Helper Relationship Specialty Start Date End Date Radha Madrigal NP [address] [place] [address] [phone] PCP - General 06/16/13 documented as of this encounter
--- OUTSIDE RECORDS SUMMARY | 2023-12-10 23:00 | XMS_ITS | Encounter Summary ---
[place] [address] Care Team Providers Care Pet Care Worker Name Role Phone Maxine Cabrera MARIPOSA Primary Care Provider [phone] Reason for Referral * Allergy Testing (Routine) - Closed Specialty Diagnoses / Procedures Referred By Sanju miller Referred To Contact Allergy Diagnoses Personal history of allergy to antibiotic agent Kirk Duffy DNP [address] [place] [address] [facility] [address] [place] [address] Referral ID Status Reason Start Date Expiration Date V isits Requested Visits Authorized [id number] Closed Consult, Test & Treat PCP Updated and/or Approved 10/26/2022 10/26/2023 6 6 Encounter Details Date Type Department Care Team (Late st Contact Info) Description 10/26/2022 Transcribe Orders eDH Incoming Referrals [phone] Kirk Duffy DNP [address] [place], [place] [phone] Personal history of allergy to antibiotic agent Social History Tobacco Use Types Packs/Day Years Used Date Smoking Tobacco: Never Smokeless Tobacco: Never Sex and Gender Information Value Date Recorded Sex Assigned at Not on file Gender Identity Not on file Sexual Orientation Not on file documented as of this encounter Plan of Treatment Scheduled Referrals Name Type Priority Associated Diagnoses Orde r Schedule Referral to Allergy Outpatient Referral Routine Personal history of allergy to antibiotic agent Ordered: 10/26/2022 documented as of this encounter Visit Diagnoses Diagnosis Personal history of allergy to antibiotic agent Personal history of allergy to other antibiotic agent documented in this encounter Care Teams Pet Care Worker Relationship Specialty Start Date End Date Maxine Cabrera, STEREO MAP PLOTTER OPERATOR [address] [place] [address] PCP - General Family Medicine 06/22/19 documented as of this encounter
--- OUTSIDE RECORDS SUMMARY | 2023-12-10 23:00 | XMS_ITS | Encounter Summary ---
Author Organization [facility] Address [address] [place] [address] Care Team Providers Care Trail Maintenance Worker Name Role Phone Unavailable Primary Care Provider Unavailabl e Encounter Details Date Type Department Care Team (Latest Contact Info) Description 06/04/2013 8:20 EST - 06/04/2013 23:59 EST Hospital Encounter [address] [address] Unknown, Provider, Discharge Disposition: Home or Self Care Social History Tobacco Use Types Packs/Day Years Used Date Smoking Tobacco: Never Assessed Sex and Gender Information Value Date Recorded Sex Assigned at Not on file Gender Identity Not on file Sexual Orientation Not on file documented as of this encounter Discharge Disposition Disposition Code Departure Means Destination Home or Self Group Home documented in this encounter Plan of Treatment Not on file documented as of this encounter Visit Diagnoses Not on filedocumented in this encounter
--- OUTSIDE RECORDS SUMMARY | 2023-12-10 23:00 | XMS_ITS | Encounter Summary ---
Author Organization [facility] Address [address] [place] [address] Care Team Providers Care Client Insights Consultant Name Role Phone Radha Madrigal OBSTETRIC ANAESTHETIST Primary Care Provider [phone] Encounter Details Date Type Department Care Team (Late st Contact Info) Description 12/18/2017 Results Only [facility] [phone] Amaury Cross, WATER MANAGER [address] [place] [address] Social History Tobacco Use Types Packs/Day [...] Diagnosis Comments PAP TEST- RESULT ONLY Routine 12/18/2017 0:00 EDT documented in this encounter Results * PAP TEST- RESULT ONLY (12/18/2017 0:00 EDT) Pathology Report: CYTOPATHOLOGY REPORT Reports generated via electronic interface contain original data; however they are lacking the format of the original report. Caution should be taken when reading/interpreti ng unformatted reports. Name: ? SEA LYNN ? Accession #: ? [id number] ? : ? 1985 (Age: 32) ??F ?Collect Date: ? 12/18/2017 ? Location: ? [facility] ? Receive Date: ? 12/19/2017 ? Provider: AMAURY CROSS WATER MANAGER Copy to: TALITA Antionette CASTILLO REPRESENTATIVE PERSONAL SERVICE ? Final Report SPECIMEN ADEQUACY ? Satisfactory for Evaluation - transformation zone component present GENERAL CATEGORIZATION ? Negative for Intraepithelial Lesion or Malignancy ?? Menstrual/Pregnanc y Status: ??Post Previous Gynecologic Pathology: ASC-US: 2014 Infection History: Pos for HPV: 2014 Other: Additional clinical information: Specimen/Source: ??Pap Test, Cervix, ThinPrep Imaging System with manual evaluation Document reviewed and electronically signed by: ? Elvira Hui, CT(ASCP) ? Report ??Date: 12/31/2017 14:37 HPV with Pap Test ? Date Ordered: ? 12/31/2017 ? Status: ?? Signed Out ?Date Complete: ? 01/01/2018 ? By: ??System Interface ? Date Reported: ? 01/01/2018 ? Interpretation RESULT: Negative for HPV. No E6 or E7 mRNA is detected from HPV types 16,18,31,33,35, 39,45,51,52,56,58, 59,66, and 68 by android developer mediated amplification. Comments Document reviewed and electronically signed by: ? System Interface ? Report date: 01/01/2018 By the signature above, the attending physician certifies that he/she has personally conducted a gross and/or microscopic examination of the described specimens and rendered or confirmed the above diagnosis. End of Report [facility] 12/18/2017 12/19/2017 Amaury Cross APRN PATHOLOGY ORDERAB LES [facility] [address] [place] [address] documented in this encounter Visit Diagnoses Not on filedocumented in this encounter Care Teams Client Insights Consultant Relationship Specialty Start Date End Date Radha Madrigal NP [address] [place] [phone] PCP - General 06/16/13 documented as of this encounter
--- OUTSIDE RECORDS SUMMARY | 2023-12-10 23:00 | XMS_ITS | Encounter Summary ---
Author Organization [facility] Address [address] [place] [address] Care Team Providers Care Lamination Spinner Name Role Phone Unavailable Primary Care Provider Unavailabl e Encounter Details Date Type Department Care Team (Late st Contact Info) Description 01/19/2011 Results Only [facility] Laboratory Services - [facility] ([facility]) [address] [place] [address] Deyanira Taylor, [facility] [address] [place] [phone] Social History Tobacco Use Types Packs/Day [...] Diagnosis Comments PAP TEST- RESULT ONLY Routine 01/19/2011 0:00 EDT documented in this encounter Results * PAP TEST- RESULT ONLY (01/19/2011 0:00 EDT) Pathology Report: CYTOPATHOLOGY REPORT ? Reports generated via electronic interface contain original data; ? however they are lacking the format of the original report. ? Caution should be taken when reading/interpreti ng unformatted reports. ? Name: ? SEA LYNN ? Accession #: ? [id number] ? : ? 1985 (Age: 25) ??F ?Collect Date: ? 01/19/2011 ? Location: ? [facility] ? Receive Date: ? 01/22/2011 ? Provider: ?DEYANIRA EDDIE AUTO BODY PAINTER ? Copy to: ?SEMAJ ARCHER GUILLOTINE OPERATOR ? Specimen/Source: ?Pap Test, Cervix/Endocervix, ThinPrep Imaging System ? with manual evaluation ? Last Menstrual Period: ? 12/25/2010 ? Hormonal/Contracep tive Status: ? Intrauterine device: Mirena ? SPECIMEN ADEQUACY ? Satisfactory for Evaluation ? - transformation zone component present ? GENERAL CATEGORIZATION ? Negative for Intraepithelial Lesion or Malignancy ? Document reviewed and electronically signed by: ? Tina Castillo, SCT(ASCP) ? Report Date: ??01/26/2011 12:20 ? End of Report ? NOELLE PIMENTEL 01/19/2011 01/22/2011 Deyanira Taylor AUTO BODY PAINTER PATHOLOGY ORDERABLES [facility] [address] [place] [address] documented in this encounter Visit Diagnoses Not on filedocumented in this encounter
--- OUTSIDE RECORDS SUMMARY | 2023-12-10 23:00 | XMS_ITS | Encounter Summary ---
Author Organization [facility] Address [address] [place] [address] Care Team Providers Care Appeals Court Associate Justice Name Role Phone Marshall Madrigal CELL RELINER Primary Care Provider Encounter Details Date Type Department Care Team (Late st Contact Info) Description 06/23/[address] [facility] Laboratory Services - [facility] ([facility]) [address] [place] [address] Funmi Marie MD [address] [place] [address] [place] [phone] Social History Tobacco Use Types Packs/Day Years Used Date Smoking Tobacco: Never Assessed Sex and Gender Information Value Date Recorded Sex Assigned at Not on file Gender Identity Not on file Sexual Orientation Not on file documented as of this encounter Plan of Treatment Not on file documented as of this encounter Procedures Procedure Name Priority Date/Time Associated Diagnosis Comments SURGICAL PATHOLOGY Routine 06/23/2013 9:10 EST documented in this encounter Results * SURGICAL PATHOLOGY (06/23/2013 9:10 EST) Pathology Report: SURGICAL PATHOLOGY REPORT Reports generated via electronic interface contain original data; however they are lacking the format of the original report. Caution should be taken when reading/interpreti ng unformatted reports. Name: ? SEA DUGGAN ? Accession #: ? [id number] ? : ? 1985 (Age: 27) ??F ? Collect Date: ? 06/23/2013 ? Location: ? [facility] ? Receive Date: ? 06/23/2013 ? Provider: FUNMI MARIE MD Copy to: MARSHALL MORGAN TELEPHONE CLERK TELEGRAPH OFFICE ? Final Pathologic Diagnosis: ENDOCERVIX, CURETTAGE: - ?Scant benign endocervical glands and squamous epithelial cells. Document reviewed and electronically signed by: SHARRON LIGHT MD Report ??Date: 06/26/2013 12:19 By the signature above, the attending physician certifies that he/she has personally conducted a gross and/or microscopic examination of the described specimens and rendered or confirmed the above diagnosis. Specimen(s) Received: Colposcopy ECC Clinical History: 06/04/2013 Pap ASCUS, (+) HPV; pt on control pills; LMP: 05/19/2013, test done neg Gross Description: ? Received in formalin labelled with proper patient identification (initials P, E) and endocervical curettage is an aggregate of hitchcock-baker mucinous material (0.5 x 0.5 x 0.2 cm). Submitted in toto in 1. Marissa Dorado 06/24/2013 10:02 AM End of Report NOELLE PIMENTEL 06/23/2013 9:10 EST 06/23/2013 9:10 EST Funmi Marie MD PATHOLOGY ORDERABLES Performing Organization Address City/State/[facility] Co de Phone Number NOELLE PIMENT[facility] [address] [place] [address] documented in this encounter Visit Diagnoses Not on filedocumented in this encounter Care Teams Appeals Court Associate Justice Relationship Specialty Start Date End Date Marshall Madrigal NP [address] [place] [phone] PCP - General 06/16/13 documented as of this encounter
[2023-12-12 07:44] LABS: Lyme Ab w Rflx to Lyme Confirm Negative (Negative)
[2023-12-14 13:48] LABS: Anaplasma phagocytophilum Negative (Negative); B. miyamotoi PCR Negative (Negative); Babesia divergens/MO-1 Negative (Negative); Babesia duncani Negative (Negative); Babesia microti Negative (Negative); Ehrlichia chaffeensis Negative (Negative); Ehrlichia ewingii/canis Negative (Negative); Ehrlichia muris eauclairensis Negative (Negative)
== END 2023-12-10 22:42 | disposition home or self-care (01) ==
LOC: LBN 22:41
PROVIDERS: Visit Provider Nurse Practitioner Family
DX: R20.0 Anesthesia of skin (principal)
CPT/HCPCS: 80053; 87798; 82607; 82746; 84443; 85025; 86618

== ENCOUNTER 2024-02-03 11:38 | Outpatient (REF) | payer BC, SELFPAY ==
--- NOTE | 2024-02-03 11:20 | PAPFT_PTH ---
PATIENT: Mag Lynn LOC: [facility] U#:[id number] AGE/SX: 38/F ROOM: RE02/03/[address]: Devi Harvey NP : 1985 BED: DIS: 02/03/2024 SPEC #: [id number] RECD: 02/03/24 13:19 STATUS: EVANS REBrandan #: [id number] ASHER: 02/03/24 11:[address]: Devi Harvey NP DEPT: [facility] Cytology RECD BY: Rosita Dominique ENTERED: 02/03/24 13:19 SP TYPE: PAPFT OTHR DR: Cathy Enriquez Tissues: 1 - CX/ENDOCX FOR PAP SMEARS Procedures: PAP THIN PREP/[facility] Screening HPV DNA PROBE Comments: [id number] (HPV 16 & 18/45)
== END 2024-02-03 11:39 | disposition home or self-care (01) ==
LOC: LBN 11:38
PROVIDERS: PCP Nurse Practitioner Family; Visit Provider Nurse Practitioner Women's Health
DX: Z12.4 Encounter for screening for malignant neoplasm of cervix (principal)
CPT/HCPCS: 88142; 87624

== ENCOUNTER 2025-02-03 13:28 | Outpatient (REF) | payer OTHER, SELFPAY ==
--- NOTE | 2025-02-03 13:00 | PAPFT_PTH ---
PATIENT: Mag Lynn LOC: [facility] U#:[id number] AGE/SX: 39/F ROOM: RE02/03/[address]: Devi Harvey NP : 1985 BED: DIS: 02/03/2025 SPEC #: [id number] RECD: 02/03/25 17:45 STATUS: EVANS REBrandan #: [id number] ASHER: 02/03/25 13:[address]: Devi Harvey NP DEPT: [facility] Cytology RECD BY: Rosita Dominique ENTERED: 02/03/25 17:45 SP TYPE: PAPFT OTHR DR: Cathy Enriquez Tissues: 1 - CX/ENDOCX FOR PAP SMEARS Procedures: PAP THIN PREP/[facility] Screening HPV DNA PROBE Comments: [id number] (HPV 16 & 18/45)
== END 2025-02-03 13:29 | disposition home or self-care (01) ==
LOC: LBN 13:28
PROVIDERS: PCP Nurse Practitioner Family; Visit Provider Nurse Practitioner Women's Health
DX: Z12.4 Encounter for screening for malignant neoplasm of cervix (principal)
CPT/HCPCS: 88142; 87624